=== PATIENT | female | born 1970 | race African-American/Black ===

== ENCOUNTER 2019-06-07 20:45 | Inpatient (IN) ==
[2019-06-07] MEDS ORDERED: NS 1,000 ML IV ONE ×2 (20:49)
[2019-06-07] MEDS ORDERED: EPINEPHRINE IM ONE (20:49)
[2019-06-07] MEDS ORDERED: DUONEB (A & A) INH ONE (20:49)
[2019-06-07 21:04] LABS: BASO# 0.02 X1000 (0.0-0.2); BASO% 0.2 % (0.0-0.8); EOS# 0.07 X1000 (0.0-0.7); EOS% 0.6 % (0.0-10.0); HEMATOCRIT 39.8 % (37.0-47.0); HEMOGLOBIN 11.7 g/dL (12.0-16.0); IMM GRAN# 0.05 X1000 (0.0-0.04); IMM GRAN% 0.4 % (0.0-0.5); LYMPH# 1.25 X1000 (1.2-3.4); LYMPH% 10.2 % (20.5-51.1); MCH 22.7 PG (27-31); MCHC 29.4 g/dL (33-37); MCV 77.1 FL (81-99); MONO% 9.8 % (1.7-9.3); MPV 10.8 FL (7.4-10.4); NEUT# 9.66 X1000 (1.4-6.5); NEUT% 78.8 % (42.2-75.2); PLT 298 X1000 (130-400); RBC 5.16 XMIL (4.2-5.4); RDW 15.9 % (11.5-14.5); WBC 12.25 X1000 (4.8-10.8)
[2019-06-07 21:20] LABS: AGAP 11; ALBUMIN 4.4 g/dL (3.5-5.0); ALKALINE PHOSPHATASE 94 U/L (32-104); BUN 12 mg/dL (8-22); CALCIUM 9.5 mg/dL (8.8-10.2); CHLORIDE 104 mmol/L (98-107); CK PROFILE 160 U/L (24-173); COSMO 290; CREATININE 0.7 mg/dL (0.5-0.9); ESTIMATED GFR > 60; GLUCOSE 159 mg/dL (70-104); GOT 10 U/L (10-30); GPT 10 U/L (10-36); MAGNESIUM 1.7 mg/dL (1.5-2.7); POTASSIUM 3.9 mmol/L (3.5-5.1); SODIUM 144 mmol/L (136-145); TCO2 29 mmol/L (25-35); TOTAL PROTEIN 7.1 g/dL (6.3-8.3)
[2019-06-07 21:20] LABS: BE 3.6 mmoll (-3.0-3.0); BLOOD TYPE ARTERIAL; HCO3-(ACT) 27.5 mmoll (20.0-26.0); METHB 1.5 % (0.0-1.5); O2(CT) 15.8 mL/dL (15.0-23.0); PO2(98.6) 63 mmHg (60-100); SAMPLE BLOOD; SAO2 95.5 % (95.0-100.0); THB 12.5 g/dL (11.5-17.4); pH(98.6) 7.35 (7.35-7.45)
[2019-06-07 21:22] LABS: INR 0.9; PROTIME 12.6 Seconds (11.0-16.0)
[2019-06-07 21:23] LABS: PTT 30.1 Seconds (22.3-41.8)
[2019-06-07 21:23] LABS: ALLEN TEST YES; MODALITY CANNULA; O2HB 89.6 % (95.0-99.0); PCO2(98.6) 55 mmHg (35-45)
[2019-06-07 21:36] LABS: INFLUENZA A NEGATIVE (NEGATIVE); INFLUENZA B NEGATIVE (NEGATIVE)
[2019-06-07 21:39] LABS: URINE SOURCE CATH
[2019-06-07] MEDS ORDERED: ROCEPHIN 2 GM in NS 50 ML IV ONE (21:39)
[2019-06-07] MEDS ORDERED: ZITHROMAX 500 MG/NS 500 MG/250 ML IVPB IV ONE (21:39)
[2019-06-07 21:41] LABS: BILIRUBIN URINE NEGATIVE (NEGATIVE); BLOOD URINE TRACE (NEGATIVE); COLOR YELLOW; GLUCOSE URINE NEGATIVE (NEGATIVE); KETONE URINE NEGATIVE (NEGATIVE); LEUKOCYTES URINE NEGATIVE (NEGATIVE); NITRITE URINE NEGATIVE (NEGATIVE); PH URINE 5.5; PROTEIN URINE 30 mg/dL (NEGATIVE); SP GRAVITY URINE 1.027; TURBIDITY URINE CLEAR (CLEAR); UROBILINOGEN URINE NORMAL (NORMAL)
[2019-06-07 21:42] LABS: UR EPITHELIAL CELLS <10 /HPF (<10); URINE BACTERIA NEGATIVE /HPF; URINE RBC <10 /HPF (<10); URINE WBC <10 /HPF (<10)
[2019-06-07] MEDS: MAGNESIUM SULFATE 2 GM/S.W.I. 2 GM/50 ML IVPB IV ONE ×2 (21:48→22:34)
[2019-06-07] MEDS ORDERED: LASIX IV ONE (22:03)
[2019-06-07] MEDS ORDERED: ZOFRAN IV ONE (22:04)
[2019-06-07] MEDS ORDERED: NITROGLYCERIN TOP ONE (22:04)
[2019-06-07] MEDS ORDERED: MORPHINE IV ONE (22:04)
--- NOTE | 2019-06-07 22:05 | Diag Imaging Result Doc PS360 ---
EXAM: CHEST-1 VIEW INDICATION: resp distress TECHNIQUE: One view COMPARISON: 03/27/2019 FINDINGS: Lung volumes are very low. There is opacification at the left lung base suggesting possible consolidation. Some of this may be due to attenuation of overlying soft tissue. Cardiac silhouette and central vasculature are grossly unremarkable. IMPRESSION: Very low lung volumes and increased opacity at the left lung base suggesting possible developing consolidation. Electronically signed by Pradeep Kathleen 06/07/2019 10:03 PM
--- NOTE | 2019-06-07 22:32 | PROVIDER DOCUMENTATION ---
This chart was entered by Petra Kathleen Scribe, acting as scribe for Dmitry Villegas MD. HPI-Respiratory General - General Stated Complaint: SOB Time Seen by Provider: 06/07/19 20:47 Source: patient, other (triage note) Allergies/Adverse Reactions: Patient Allergies Allergy/AdvReac Type Severity Reaction Status Date / Time Iodinated Contrast Media Allergy Severe HIVES Verified 06/07/19 20:51 Home Medications: Home Medication List Medication Instructions Recorded Confirmed Last Taken Type Metformin [Glucophage] 1,000 mg PO WBREAKFAST #120 tab 05/25/17 05/05/19 7 Rx Bupropion HCl 1 tab PO BID 03/31/19 05/05/19 Unknown History Chlorthalidone 1 tab PO BID 03/31/19 05/05/19 Unknown History Metoprolol [Lopressor] 1 tab PO BID 03/31/19 05/05/19 Unknown History Tizanidine [Zanaflex] 1 tab PO BID 03/31/19 05/05/19 Unknown History Zolpidem [Ambien] 1 tab PO HS 03/31/19 05/05/19 Unknown History Meloxicam [Mobic] 7.5 mg PO DAILY PRN #14 tab 05/05/19 Unknown Rx - History of Present Illness-Resp Nature of Presenting Problem: pt is a 48 yobf presenting to er w/cc severe resp distress ongoing all day. pt only able to say 3-4 words at a time, ill appearing, an dis tachypenic and tachycardic. pt has hx of copd and asthma. pcp is Dr. Smith. hpi limited due to pt condition. Severity in ED: reports: severe Onset/Duration: reports: just prior to arrival Timing: reports: still present Exposure: reports: unknown cause Similar Symptoms Previously?: Yes (pt has been on ventilator before for resp distress ) Review of Systems - Adult - REVIEW OF SYSTEMS - ADULT ROS:: limited per condition Constitutional: reports: no symptoms reported. denies: chills, fever, fatique Eyes: reports: no symptoms reported Ears, Nose, Mouth & Throat: reports: no symptoms reported Cardiovascular: reports: see HPI, irregular heart rate Respiratory: reports: see HPI, shortness of breath, wheezing, other (severe resp distress, tachypnea). denies: excessive sputum production, hemoptysis Gastrointestinal: reports: diarrhea (profuse watery x 2 days) Genitourinary: reports: no symptoms reported Musculoskeletal: reports: no symptoms reported Integumentary: reports: no symptoms reported Neurological: reports: no symptoms reported Psychiatric: reports: no symptoms reported Endocrine: reports: no symptoms reported Hematologic/Lymphatic: reports: no symptoms reported Allergic/Immunologic: reports: no symptoms reported All Other Systems: Reviewed and Negative Past History - Adult - PAST MEDICAL HISTORY-ADULT Review of Records: reports: Nursing Assessment Review, Medications Reviewed, Social history reviewed & non-contributory. Major Childhood Illnesses: reports: denies history Cardiovascular: reports: HTN, hyperlipidemia Respiratory: reports: asthma, COPD Gastrointestinal: reports: denies history Obstetrical/Gynecological: reports: denies history Genitourinary: reports: denies history Musculoskeletal: reports: denies history Neurological: reports: CVA, other (aneursym) Endocrine/Immune: reports: Diabetes Other Conditions: reports: denies history - PRIOR SURGERIES/PROCEDURES Surgical/Procedure History: reports: tonsillectomy, hernia repair, other (ANEURYSM) - IMMUNIZATION STATUS Childhood Immunizations: See Nurse Assessment Flu Vaccine: See Nurse Assessment - FAMILY HISTORY Family History: reviewed, not pertinent - SOCIAL HISTORY Smoking: other (former smoker) Substance Use: none/never Physical Exam-General - PHYSICAL EXAM-ADULT Initial Vital Signs Reviewed: Yes - CONSTITUTIONAL General Appearance: alert, severe distress, obese, slow to respond, obtunded. negative: appears well, no apparent distress, mild distress - EYES Eyes: PERRL/EOMI, pink conjunctivae - HEAD, EARS, NOSE, MOUTH & THROAT HENMT: normocephalic/atraumatic. negative: moist mucous membranes (dry mucous membranes) - NECK Neck: non-tender, full range of motion, supple, normal inspection - RESPIRATORY Respiratory: chest non-tender, respiratory distress, decreased breath sounds (diminshed), accessory muscle use, rhonchi, wheezing (bilat exp and ins), increased rate. negative: lungs clear, normal breath sounds, no respiratory distress, no accessory muscle use, crackles, rales - CARDIOVASCULAR Cardiovascular: normal peripheral pulses, no edema, no gallop, no JVD, no murmur , tachycardia. negative: regular rate, rhythm, friction rub, irregularly irregular - GASTROINTESTINAL (ABDOMEN) Abdominal Exam: non tender, soft, other (large abd scar from hernia repair). negative: rigid, rebound, tenderness - MUSCULOSKELETAL Back Exam: normal inspection Extremity: normal range of motion, non-tender, normal inspection - SKIN Integumentary: normal color, normal turgor, diaphoresis. negative: warm/dry - NEUROLOGIC Neurologic: grossly normal, no motor/sensory deficits - PSYCHIATRIC Psych/Mental Status: oriented x 3. negative: normal mood/affect, normal thought content, normal thought process Progress - PLAN OF CARE/RESULTS Progress/Plan/Lab Results: Vital Signs - 8 hr 06/07/19 20:46 06/07/19 21:00 06/07/19 21:14 Temperature 98.2 F Pulse Rate 120 H 117 H Respiratory Rate 40 H 28 H Blood Pressure 165/119 O2 Sat by Pulse Oximetry 84 L 94 L Laboratory Results - last 24 hr 06/07/19 06/07/19 06/07/19 20:57 20:58 20:58 WBC 12.25 H RBC 5.16 Hgb 11.7 L Hct 39.8 MCV 77.1 L MCH 22.7 L MCHC 29.4 L RDW Std Deviation 15.9 H Plt Count 298 MPV 10.8 H Immature Gran % (Auto) 0.4 Neut % (Auto) 78.8 H Lymph % (Auto) 10.2 L [place] % (Auto) 9.8 H Eos % (Auto) 0.6 Baso % (Auto) 0.2 Immature Gran # (Auto) 0.05 H Neut # (Auto) 9.66 H Lymph # (Auto) 1.25 [place] # (Auto) 1.20 H Eos # (Auto) 0.07 Baso # (Auto) 0.02 PT INR PTT (Actin FS) Specimen Type ARTERIAL Sample Site R RADIAL pH 7.35 pCO2 55 H* pO2 63 HCO3 27.5 H Base Excess 3.6 H Oxyhemoglobin 89.6 L* ABG O2 Sat (Calculated) 15.8 ABG O2 Saturation 95.5 ABG Carboxyhemoglobin 4.80 H ABG Methemoglobin 1.5 Aayush Test YES A-a O2 Difference 68.0 Total Hemoglobin 12.5 Lactate 1.40 Liter Flow 2.0 Blood Gas Modality CANNULA FiO2 % 28.0 Sodium 144 Potassium 3.9 Chloride 104 Carbon Dioxide 29 Anion Gap 11 BUN 12 Creatinine 0.7 Estimated GFR/1.73 m2 > 60 BUN/Creatinine Ratio 17 Glucose 159 H Calculated Osmolality 290 Calcium 9.5 Magnesium 1.7 Total Bilirubin 0.20 AST 10 ALT 10 Alkaline Phosphatase 94 Creatine Kinase 160 Troponin T Yvo-E-Vljibzpoygk Pept Total Protein 7.1 Albumin 4.4 Globulin 3.0 Albumin/Globulin Ratio 2.0 Plasma Lactate Urine Source Urine Color Urine Turbidity Urine pH Ur Specific [place] Urine Protein Ur Glucose (Stick) Ur Ketones (Stick) Urine Blood Urine Nitrite Urine Bilirubin Urobilinogen Dipstick Urine Leukocytes Urine WBC (Auto) Urine RBC (Auto) U Epithel Cells (Auto) Urine Bacteria (Auto) Influenza A (Rapid) Influenza B (Rapid) Group A Strep Rapid 06/07/19 06/07/19 06/07/19 20:58 20:58 20:58 WBC RBC Hgb Hct MCV MCH MCHC RDW Std Deviation Plt Count MPV Immature Gran % (Auto) Neut % (Auto) Lymph % (Auto) [place] % (Auto) Eos % (Auto) Baso % (Auto) Immature Gran # (Auto) Neut # (Auto) Lymph # (Auto) [place] # (Auto) Eos # (Auto) Baso # (Auto) PT 12.6 INR 0.90 PTT (Actin FS) 30.1 Specimen Type Sample Site pH pCO2 pO2 HCO3 Base Excess Oxyhemoglobin ABG O2 Sat (Calculated) ABG O2 Saturation ABG Carboxyhemoglobin ABG Methemoglobin Aayush Test A-a O2 Difference Total Hemoglobin Lactate Liter Flow Blood Gas Modality FiO2 % Sodium Potassium Chloride Carbon Dioxide Anion Gap BUN Creatinine Estimated GFR/1.73 m2 BUN/Creatinine Ratio Glucose Calculated Osmolality Calcium Magnesium Total Bilirubin AST ALT Alkaline Phosphatase Creatine Kinase Troponin T < 0.010 Jje-M-Yyiapmaaxsa Pept 1123 H Total Protein Albumin Globulin Albumin/Globulin Ratio Plasma Lactate Urine Source Urine Color Urine Turbidity Urine pH Ur Specific [place] Urine Protein Ur Glucose (Stick) Ur Ketones (Stick) Urine Blood Urine Nitrite Urine Bilirubin Urobilinogen Dipstick Urine Leukocytes Urine WBC (Auto) Urine RBC (Auto) U Epithel Cells (Auto) Urine Bacteria (Auto) Influenza A (Rapid) Influenza B (Rapid) Group A Strep Rapid 06/07/19 06/07/19 06/07/19 21:08 21:08 21:30 WBC RBC Hgb Hct MCV MCH MCHC RDW Std Deviation Plt Count MPV Immature Gran % (Auto) Neut % (Auto) Lymph % (Auto) [place] % (Auto) Eos % (Auto) Baso % (Auto) Immature Gran # (Auto) Neut # (Auto) Lymph # (Auto) [place] # (Auto) Eos # (Auto) Baso # (Auto) PT INR PTT (Actin FS) Specimen Type Sample Site pH pCO2 pO2 HCO3 Base Excess Oxyhemoglobin ABG O2 Sat (Calculated) ABG O2 Saturation ABG Carboxyhemoglobin ABG Methemoglobin Aayush Test A-a O2 Difference Total Hemoglobin Lactate Liter Flow Blood Gas Modality FiO2 % Sodium Potassium Chloride Carbon Dioxide Anion Gap BUN Creatinine Estimated GFR/1.73 m2 BUN/Creatinine Ratio Glucose Calculated Osmolality Calcium Magnesium Total Bilirubin AST ALT Alkaline Phosphatase Creatine Kinase Troponin T Mrl-I-Mmymuuwvhiq Pept Total Protein Albumin Globulin Albumin/Globulin Ratio Plasma Lactate Urine Source CATH Urine Color YELLOW Urine Turbidity CLEAR Urine pH 5.5 Ur Specific [place] 1.027 Urine Protein 30 A Ur Glucose (Stick) NEGATIVE Ur Ketones (Stick) NEGATIVE Urine Blood TRACE A Urine Nitrite NEGATIVE Urine Bilirubin NEGATIVE Urobilinogen Dipstick NORMAL Urine Leukocytes NEGATIVE Urine WBC (Auto) <10 Urine RBC (Auto) <10 U Epithel Cells (Auto) <10 Urine Bacteria (Auto) NEGATIVE Influenza A (Rapid) NEGATIVE Influenza B (Rapid) NEGATIVE Group A Strep Rapid NEGATIVE 06/07/19 21:35 WBC RBC Hgb Hct MCV MCH MCHC RDW Std Deviation Plt Count MPV Immature Gran % (Auto) Neut % (Auto) Lymph % (Auto) [place] % (Auto) Eos % (Auto) Baso % (Auto) Immature Gran # (Auto) Neut # (Auto) Lymph # (Auto) [place] # (Auto) Eos # (Auto) Baso # (Auto) PT INR PTT (Actin FS) Specimen Type Sample Site pH pCO2 pO2 HCO3 Base Excess Oxyhemoglobin ABG O2 Sat (Calculated) ABG O2 Saturation ABG Carboxyhemoglobin ABG Methemoglobin Aayush Test A-a O2 Difference Total Hemoglobin Lactate Liter Flow Blood Gas Modality FiO2 % Sodium Potassium Chloride Carbon Dioxide Anion Gap BUN Creatinine Estimated GFR/1.73 m2 BUN/Creatinine Ratio Glucose Calculated Osmolality Calcium Magnesium Total Bilirubin AST ALT Alkaline Phosphatase Creatine Kinase Troponin T Nel-Z-Xgjpfuqxbxb Pept Total Protein Albumin Globulin Albumin/Globulin Ratio Plasma Lactate 1.2 Urine Source Urine Color Urine Turbidity Urine pH Ur Specific [place] Urine Protein Ur Glucose (Stick) Ur Ketones (Stick) Urine Blood Urine Nitrite Urine Bilirubin Urobilinogen Dipstick Urine Leukocytes Urine WBC (Auto) Urine RBC (Auto) U Epithel Cells (Auto) Urine Bacteria (Auto) Influenza A (Rapid) Influenza B (Rapid) Group A Strep Rapid Orders Category Date Time Status Cardiac Monitoring DIRECTED Care 06/07/19 20:48 Active IV Insertion ORDERED Care 06/07/19 20:48 Active CHEST-1 VIEW [RAD] Stat Exams 06/07/19 20:48 Completed ABG [RESP] Routine Lab 06/07/19 20:57 Completed BLOOD CULTURE [BLDCUL] Stat Lab 06/07/19 20:57 Ordered C DIFF TOXIN [STOOL] Stat Lab 06/07/19 21:30 Received CBC WITH DIFF [HEME] Stat Lab 06/07/19 20:58 Completed CK PROFILE [SP CHEM] Stat Lab 06/07/19 20:58 Completed COMPREHENSIVE METABOLIC PANEL [CHEM] Stat Lab 06/07/19 20:[address] Stat Lab 06/07/19 21:[address] Stat Lab 06/07/19 21:08 Completed LACTATE, PLASMA [CHEM] Lab 06/08/19 00:00 Uncollected LACTATE, PLASMA [CHEM] Lab 06/08/19 03:00 Uncollected LACTATE, PLASMA [CHEM] Q3H Lab 06/07/19 21:35 Completed MAGNESIUM [CHEM] Stat Lab 06/07/19 20:58 Completed PRO B-NATRIURETIC PEPTIDE Stat Lab 06/07/19 20:58 Completed PROTIME WITH INR [COAG] Stat Lab 06/07/19 20:58 Completed PTT [COAG] Stat Lab 06/07/19 20:58 Completed STOOL CULTURE [RM] Routine Lab 06/07/19 21:39 Ordered TROPONIN T Stat Lab 06/07/19 20:58 Completed URINALYSIS W/POSS RFLX CULT [URINALYSIS] Stat Lab 06/07/19 21:30 Completed 0.9% Sodium Chloride Inj [Ns] 1,000 ml Med 06/07/19 20:49 Discontinued IV 999 mls/hr 0.9% Sodium Chloride Inj [Ns] 1,000 ml Med 06/07/19 20:49 Discontinued IV 999 mls/hr Albuterol 2.5MG/Ipratrop 0.5MG [Duoneb (A & A)] Med 06/07/19 20:49 Discontinued 9 ml INH NOW ONE Azithromycin 500 mg/Ns [Zithromax 500 mg/Ns] Med 06/07/19 21:39 Active 500 mg in 250 ml IV NOW CefTRIAXONE [Rocephin] 2 gm Med 06/07/19 21:39 Discontinued 0.9% Sodium Chloride Inj [Ns] 50 ml IV NOW Epinephrine Med 06/07/19 20:49 Discontinued 0.3 mg IM NOW ONE Furosemide [Lasix] Med 06/07/19 22:03 Discontinued 80 mg IV NOW ONE Magnesium Sulfate 2 gm/S.w.i. Med 06/07/19 20:49 Discontinued 2 gm in 50 ml IV NOW Morphine Med 06/07/19 22:04 Discontinued 2 mg IV NOW ONE Nitroglycerin Med 06/07/19 22:04 Discontinued 0.5 inch TOP NOW ONE Ondansetron [Zofran] Med 06/07/19 22:04 Discontinued 4 mg IV NOW ONE Aerosol Treatments Routine Oth 06/07/19 20:50 Completed Aerosol Treatments Stat Oth 06/07/19 20:50 Completed Oxygen Device Stat Oth 06/07/19 20:48 Completed Result Diagrams: 06/07/19 20:58 06/07/19 20:58 - REASSESSMENT Reassessment #1 Time Reassessed: 22:05 Status: improving (Given 3 duoneb treatments, Oxygen to raise O2 sats greater than 92%. Patient has 3 SIRS criteria, but negative lactate, so was given Rocephin/Zithromax for possible resp cause of sepsis without end organ damage. There is also evidence of CHF (HTN, CM on x-ray, cephalization of vessels, elevated pro BNP), so was given NTP, Lasix, and enalaprilat IV as BP was very high. Will need admission.) - XRAY 1 XRAY Study: Chest Impression: Abnormal, See EMR Report ( EXAM: CHEST-1 VIEW INDICATION: resp distress TECHNIQUE: One view COMPARISON: 03/27/2019 FINDINGS: Lung volumes are very low. There is opacification at the left lung base suggesting possible consolidation. Some of this may be due to attenuation of overlying soft tissue. Cardiac silhouette and central vasculature are grossly unremarkable. IMPRESSION: Very low lung volumes and increased opacity at the left lung base suggesting possible developing consolidation. Electronically signed by Pradeep Kathleen 06/07/2019 10:03 PM) - CONSULTS/PCP/HOSPITALIST Notification #1 *Consult/PCP/Hospitalist*: Hospitalist paged at [phone] Time Discussed: 22:32 (Dr. Garcia from [facility]) Consult Disposition: Admit (to [facility] at ) Departure - Departure Date of Disposition Decision: 06/07/19 Time of Disposition Decision: 22:12 DIAGNOSIS: Respiratory distress, acute, New onset of congestive heart failure, Hypertensive emergency Left lower lobe pneumonia Qualifiers: Pneumonia type: due to unspecified organism Qualified Code(s): J18.1 - Lobar pneumonia, unspecified organism Sepsis without acute organ dysfunction Qualifiers: Sepsis type: sepsis due to unspecified organism Qualified Code(s): A41.9 - Sepsis, unspecified organism Disposition: ADMITTED INPATIENT 09 Certified Medical Emergency: Emergent Condition: Fair Referrals and Follow-Ups: None,PCP [Primary Care Provider] - - Critical Care Note This patient required my direct & personal management of CC.: Yes Total Time (mins): 50 (Resp and CVS systems at peril, sepsis, chf, pne) Critical Care Statement: This patient required my direct personal management to treat or rule out processes, the absence of which, could potentiallly result in sudden, clinically significant life or limb threatening deterioration. Attestation - Physician/ OBI Attestation Patient care was provided by Advanced Practice Provider:: No The physician spent face to face time with patient:: Yes Advanced Practice Provider documentation review:: Supervising physician onsite and consulted in the evaluation and care of this patient. The physician did have a face to face encounter with the patient. This chart was documented by the indicated scribe, (Petra Kathleen Scribe) and accurately reflects the services I performed and decisions made by me, Dmitry Villegas MD, as attested by the provider's signature.
[2019-06-07] MEDS ORDERED: TYLENOL PO PRN (23:19)
[2019-06-07] MEDS: DUONEB (A & A) INH SCH (23:40)
[2019-06-08] MEDS: DUONEB (A & A) INH SCH ×6 (03:23→22:46)
[2019-06-08] MEDS: MORPHINE IV PRN ×5 (04:21→20:09)
[2019-06-08] MEDS: HEPARIN SUBQ SCH ×3 (04:37→20:10)
[2019-06-08] MEDS ORDERED: LASIX IV STA (09:01)
[2019-06-08] MEDS ORDERED: LASIX 120 MG in NS 25 ML IV STA (09:04)
--- NOTE | 2019-06-08 10:51 | PROGRESS NOTE ---
DATE: 06/08/2019 SUBJECTIVE: Ms. Simms is still struggling to breathe with significant bronchospasm and she is on BiPAP. Came in with shortness of breath, obesity. Appears to have obstructive sleep apnea as well. OBJECTIVE: General: On examination today, she is awake and alert. Expiratory wheezing in all lung leong. Vital Signs: Temperature 97.9 degrees, pulse 105, respirations 20, blood pressure 148/108. Eyes: Pupils are equal and round. Lungs: Clear in all lung leong. Cardiovascular exam: Regular rhythm and rate without murmur or S3. Abdomen: Soft. Skin: Warm and dry. ASSESSMENT AND PLAN: Expiratory wheezing; prolonged expiratory phase. She is getting DuoNebs and have her on ceftriaxone 1 g q. 24 hours, azithromycin 500 mg IV q. 24 hours. Gave her 1 dose of Lasix when she came in. I will put her on some guaifenesin and a steroid inhaler. I think she would benefit from Solu-Medrol. On her x-ray, very low lung volumes, increased opacity in the left lung base suggesting possible consolidation. cc: Aayush Martinez MD
[2019-06-08] MEDS: SYMBICORT 160/4.5 MICROGM INHALER INH SCH ×2 (11:47→19:26)
[2019-06-08] MEDS: MUCOMYST 20% INH SCH ×2 (11:47→19:26)
[2019-06-08] MEDS: SOLU-MEDROL IV SCH ×2 (12:00→20:10)
[2019-06-08] MEDS: LASIX IV SCH (16:51)
[2019-06-08] MEDS: AMBIEN PO SCH (20:10)
[2019-06-08] MEDS: MUCINEX PO SCH (20:10)
[2019-06-08] MEDS ORDERED: AMBIEN PO SCH (21:00)
[2019-06-08] MEDS: LOPRESSOR PO SCH (21:38)
[2019-06-08] MEDS: ZANAFLEX PO SCH (21:39)
[2019-06-08] MEDS: ROCEPHIN 1 GM in NS 50 ML IV SCH (21:39)
--- NOTE | 2019-06-08 22:18 | HISTORY AND PHYSICAL ---
CHIEF COMPLAINT: Shortness of breath. HISTORY OF PRESENT ILLNESS: This is a 48-year-old obese female who came into [facility] emergency room with severe respiratory distress that was ongoing all day. She was transferred to [facility] to PCU for further evaluation and had to be placed on BiPAP. She could only say 3-4 words, was ill appearing. She was tachycardic and tachypneic. Has a history of COPD, asthma and CVA as well as diabetes mellitus type 2. Her chest x-ray that was completed in the emergency room showed a left lobe pneumonia. Started on antibiotics and she will be admitted inpatient for further evaluation and treatment. PAST MEDICAL HISTORY: See HPI. PREVIOUS SURGICAL HISTORY: Aneurysm repair, hernia repair, tonsillectomy. SOCIAL HISTORY: Former smoker. No tobacco. No alcohol. No illicit drugs. FAMILY HISTORY: Positive for diabetes mellitus. ALLERGIES: Iodine contrast. HOME MEDICATIONS: Chlorthalidone 25 mg p.o. b.i.d., Lopressor 25 mg p.o. b.i.d., Zanaflex 4 mg p.o. b.i.d. and Ambien 10 mg p.o. q.h.s. REVIEW OF SYSTEMS: Fourteen-point review of systems conducted with the patient. Pertinent positives listed above in the HPI. All other systems reviewed and found to be negative. PHYSICAL EXAMINATION: VITAL SIGNS: Temperature 98.1, pulse 114, respirations 25, blood pressure 125/105, oxygen saturation 94% on 4 L nasal cannula. This was before BiPAP. Saturating 97% on BiPAP. GENERAL: A 48-year-old obese female lying in the CICU bed. She is only mouthing words, very tachypneic and short of breath, in moderate respiratory distress. HEENT: Head is atraumatic, normocephalic. Pupils equal, round, reactive to light. Extraocular eye movement is intact. Sclera is anicteric. Conjunctiva is pink. Oral mucosa is dry. NECK: Supple. No JVD. No thyromegaly. Trachea is midline. No cervical lymphadenopathy. CARDIAC: S1, S2 appreciated. No murmurs, gallops, rubs. LUNGS: Expiratory wheezing. Coarse crepitations noted on the left. Prolonged expiratory phase. She is tachypneic with decreased airway entry bilaterally. Symmetrical rise and fall with respirations. ABDOMEN: Protuberant, soft, nondistended, nontender. Bowel sounds present all 4 quadrants, normoactive. No pulsatile mass. No organomegaly. EXTREMITIES: No clubbing, cyanosis. One-plus nonpitting edema bilateral lower extremities. Two- plus pedal pulses bilaterally. GENITOURINARY: No bladder distention. Patient voids. Otherwise deferred. NEUROLOGICAL: Alert and oriented times 3. No focal motor deficits. Otherwise nonfocal examination. DIAGNOSTIC DATA: Chest x-ray showed very low lung volumes, increased opacity of the left lung, possible developing consolidation. LABORATORY DATA: WBC 12.25. Hemoglobin 11.7. Hematocrit 39.8. Platelet count 298. ABG: pH 7.35, pCO2 of 55, PO2 of 63, bicarbonate 27.5. Chemistry panel within normal limits other than a glucose of 159. ProBNP mildly elevated at 1123. Urine unremarkable. Influenza and rapid strep were negative. ASSESSMENT: 1. Left lower lobe pneumonia. 2. Hypoxic and hypercapnic respiratory failure. 3. Chronic obstructive pulmonary disease with exacerbation. 4. Hypertension. 5. Diabetes mellitus type 2. PLAN: 1. Place the patient on PCU. We will monitor closely. 2. Start on azithromycin and Rocephin IV. 3. We will not start steroids at this time as she is diabetic. However, she may benefit from steroids if she is not starting to get better tomorrow morning. 4. She was also given Lasix in the emergency room. We will not continue that at this time. We will defer to primary team tomorrow after the patient has diuresed somewhat. 5. Continue home medications for her hypertension. 6. Continue BiPAP. It is probable that the patient has obstructive sleep apnea and possible pickwickian syndrome related to her morbid obesity. 7. Continue to evaluate patient closely. 8. Further recommendations per patient clinical course. Dictated by RUSSEL Cuello for Fernando Garcia MD I have performed a face to face diagnostic evaluation. Labs/Xrays- reviewed. Exam- Chest - rhonchi, CV- regular. A/P- Pneumonia- Admit, check blood culture, IV Abx. Dr. Jose Palacio#: [id number] cc: RUSSEL Cuello MD [facility]
[2019-06-08] MEDS: ZITHROMAX 500 MG/NS 500 MG/250 ML IVPB IV SCH (22:35)
--- NOTE | 2019-06-09 02:13 | PULMONOLOGY CONSULTATION ---
DATE: 06/08/2019 REQUESTING PHYSICIAN: Dr. Aayush Martinez. REASON FOR CONSULTATION: Evaluate and treat. HISTORY OF PRESENT ILLNESS: Ms Simms is a 48-year-old white female with COPD, asthma and morbid obesity with a BMI greater than 60, who presented to the emergency room with 2 to 3 day history of increasing shortness of breath. On the day she presented to the emergency room, she was unable to complete a full sentence. Her sister is with her and indicates her last cigarette was 2 days ago. She has received steroids, nebulizer treatments, and a diuretic dose with some improvement in her shortness of breath. PAST MEDICAL HISTORY: 1. Chronic obstructive pulmonary disease. 2. Morbid obesity. She reports she is currently being evaluated for a gastric bypass. 3. Hypertension. 4. Dyslipidemia. 5. History of stroke. 6. Diabetes mellitus, on metformin. 7. Obstructive sleep apnea diagnosed with a sleep study 01/13/2019. 8. Osteoarthritis. She is followed by Dr. Michelle at [facility]. REVIEW OF SYSTEMS: As noted in the HPI. She has had increased cough, increased shortness of breath. She denies significant sputum production. She denies fevers. Review of systems otherwise negative. PHYSICAL EXAMINATION: General: Reveals a morbidly obese white female with an oxygen saturation of 98% on 4 L per nasal cannula. HEENT: Pupils are equal and reactive. Oropharynx is clear. Neck: Supple. Chest: Reveals diffuse wheezing throughout all lung leong. Cardiac: S1, S2. Abdomen: Obese and soft. Extremities: Reveal 1+ peripheral edema. LABORATORIES: Arterial blood gas reveals pH 7.35, pCO2 of 55, pO2 of 63 on nasal cannula. White blood count 12.25, hemoglobin 11.7, platelet count 298,000. Chest x-ray reveals vascular congestion with possible consolidation at the left lung base. IMPRESSION: A 48-year-old with: 1. Chronic obstructive pulmonary disease exacerbation. 2. Community-acquired pneumonia. 3. Morbid obesity. 4. Component of acute cor pulmonale. 5. Tobacco use/nicotine addiction. RECOMMENDATIONS: 1. We will give 2 doses of diuretics today in an attempt to diurese and improve pulmonary status. 2. Continue steroids, antibiotics, and bronchodilators. 3. Continue oxygen for hypoxemic respiratory failure. 4. Recommend BiPAP at bedtime and p.r.n. 5. Followup chest x-ray tomorrow morning. cc: Jose Garrido MD
[2019-06-09] MEDS: MORPHINE IV PRN ×4 (03:07→20:38)
[2019-06-09] MEDS: LASIX IV SCH (03:07)
[2019-06-09] MEDS: SOLU-MEDROL IV SCH ×3 (03:07→20:28)
[2019-06-09] MEDS: HEPARIN SUBQ SCH ×4 (03:08→20:34)
[2019-06-09] MEDS: DUONEB (A & A) INH SCH ×6 (03:35→22:29)
[2019-06-09] MEDS: HUMULIN R SUBQ SCH ×4 (06:22→22:03)
[2019-06-09 06:25] LABS: BASO# 0.01 X1000 (0.0-0.2); BASO% 0.1 % (0.0-0.8); EOS# 0.01 X1000 (0.0-0.7); EOS% 0.1 % (0.0-10.0); HEMATOCRIT 38.7 % (37.0-47.0); HEMOGLOBIN 11.3 g/dL (12.0-16.0); IMM GRAN# 0.05 X1000 (0.0-0.04); IMM GRAN% 0.3 % (0.0-0.5); LYMPH# 1.07 X1000 (1.2-3.4); LYMPH% 6.5 % (20.5-51.1); MCH 22.9 PG (27-31); MCHC 29.2 g/dL (33-37); MCV 78.3 FL (81-99); MONO# 0.29 X1000 (0.11-0.59); MONO% 1.8 % (1.7-9.3); MPV 11.2 FL (7.4-10.4); NEUT# 15.07 X1000 (1.4-6.5); NEUT% 91.2 % (42.2-75.2); PLT 308 X1000 (130-400); RBC 4.94 XMIL (4.2-5.4); RDW 15.7 % (11.5-14.5)
[2019-06-09 06:40] LABS: AGAP 10; ALB/GLOB RATIO 1.2; ALBUMIN 3.9 g/dL (3.5-5.0); ALKALINE PHOSPHATASE 79 U/L (32-104); BUN 15 mg/dL (8-22); CALCIUM 8.9 mg/dL (8.8-10.2); CHLORIDE 98 mmol/L (98-107); COSMO 287; CREATININE 0.9 mg/dL (0.5-0.9); ESTIMATED GFR > 60; GLUCOSE 179 mg/dL (70-104); GOT 8 U/L (10-30); GPT 8 U/L (10-36); MAGNESIUM 1.9 mg/dL (1.5-2.7); PHOSPHORUS 2.5 mg/dL (2.7-4.5); POTASSIUM 4.3 mmol/L (3.5-5.1); SODIUM 141 mmol/L (136-145); TCO2 33 mmol/L (25-35); TOTAL BILIRUBIN 0.23 mg/dL (0.20-1.00); TOTAL PROTEIN 7.2 g/dL (6.3-8.3)
--- NOTE | 2019-06-09 08:01 | Diag Imaging Result Doc PS360 ---
EXAM: CHEST-PORTABLE INDICATION: abnormal exam TECHNIQUE: One view COMPARISON: 06/07/2019 FINDINGS: Inspiration is slightly better than the previous study. The opacity at the left lung base has diminished. Most of this is probably overlying soft tissue attenuation. No new consolidation is identified. Cardiac silhouette is stable. IMPRESSION: Better inspiration and decrease in opacity at the left lung base as described. Electronically signed by Pradeep Kathleen 06/09/2019 7:58 AM
[2019-06-09 08:13] LABS: BANDS 4 % (0-1); LYMPHS 6 % (21-51); SEGS 90 % (42-75)
[2019-06-09] MEDS: SYMBICORT 160/4.5 MICROGM INHALER INH SCH ×2 (08:32→19:33)
[2019-06-09] MEDS: LOPRESSOR PO SCH ×2 (09:02→20:34)
[2019-06-09] MEDS: ZANAFLEX PO SCH ×2 (09:02→20:34)
[2019-06-09] MEDS: MUCINEX PO SCH ×2 (09:02→20:28)
--- NOTE | 2019-06-09 13:55 | PROGRESS NOTE ---
DATE: 06/09/2019 SUBKECTIVE: Ms. Simms is breathing better, less bronchospasm. She is complaining of her general arthritic pain and muscle pain and would like more. She says tramadol does not work and she needs some [place]. She is more comfortable. OBJECTIVE: Temp 98.3 degrees, pulse 74, respirations 18, blood pressure 143/102. Pupils are equal. CVP less than 6 cm. Lungs are clear in all lung leong. Cardiovascular regular rate without murmur or S3. Abdomen is soft. Skin is warm and dry. IMAGING: Chest x-ray shows better inspiration, decreased opacity in the left lung base. ASSESSMENT AND PLAN: 1. Chronic obstructive pulmonary disease exacerbation, community-acquired pneumonia left lower lung. Continue present antibiotics and bronchodilators. 2. Morbid obesity with obstructive apnea. 3. Acute cor pulmonale. 4. Tobacco and nicotine addiction. 5. General joint in arthritic pain so going to continue her BiPAP at bedtime. 6. Continue steroids antibiotics and bronchodilators, supplementary oxygen. 7. I will let her have some [place] for her pain control. cc: Aayush Martinez MD
[2019-06-09] MEDS: NORCO-10 PO PRN (15:42)
[2019-06-09] MEDS ORDERED: LASIX IV ONE (16:07)
[2019-06-09] MEDS: AMBIEN PO SCH (20:27)
[2019-06-09] MEDS: ROCEPHIN 1 GM in NS 50 ML IV SCH (22:03)
[2019-06-09] MEDS: ZITHROMAX 500 MG/NS 500 MG/250 ML IVPB IV SCH (22:04)
[2019-06-10] MEDS: MORPHINE IV PRN ×4 (01:06→21:34)
--- NOTE | 2019-06-10 02:01 | PULMONOLOGY PROGRESS NOTE ---
DATE: 06/09/2019 SUBJECTIVE: The patient is awake, alert, and conversant. She reports her breathing has improved. She continues to have arthritic pain and asking for pain medications. OBJECTIVE: Vital Signs: The patient has been afebrile for the last 24 hours. Blood pressure 143/102, respiratory rate 20, oxygen saturation 98% on 4 L per nasal cannula. HEENT: Pupils are equal and reactive. Oropharynx is clear. Neck: Supple. Chest: Reveals scattered wheezing throughout all lung leong. Cardiac: S1-S2. Abdomen: Obese and soft. Extremities: Reveal 1+ peripheral edema. IMPRESSION: A 48-year-old with: 1. Chronic obstructive pulmonary disease exacerbation. 2. Community-acquired pneumonia. 3. Hypoxemic respiratory failure. 4. Morbid obesity. 5. Component of acute cor pulmonale. 6. Tobacco use/nicotine addiction. DISCUSSION: A 48-year-old with problems outlined above. She has had some clinical improvement over the last 24 hours. PLAN: 1. Continue steroids, antibiotics, and bronchodilator. 2. One additional dose this afternoon of Lasix which hemodynamically she should tolerate. 3. Cycle BiPAP at bedtime and p.r.n. cc: Jose Garrido MD
[2019-06-10] MEDS: SOLU-MEDROL IV SCH ×3 (03:26→21:06)
[2019-06-10] MEDS: NORCO-10 PO PRN ×2 (03:26→12:38)
[2019-06-10] MEDS: HEPARIN SUBQ SCH ×4 (03:27→21:07)
[2019-06-10] MEDS: DUONEB (A & A) INH SCH ×6 (03:40→22:53)
[2019-06-10] MEDS: HUMULIN R SUBQ SCH ×4 (06:15→21:17)
[2019-06-10] MEDS: SYMBICORT 160/4.5 MICROGM INHALER INH SCH ×2 (07:23→19:18)
[2019-06-10] MEDS: ZANAFLEX PO SCH ×2 (08:44→21:07)
[2019-06-10] MEDS: MUCINEX PO SCH ×2 (08:44→21:07)
[2019-06-10] MEDS: LOPRESSOR PO SCH ×2 (08:44→21:07)
[2019-06-10] MEDS: CELEXA PO SCH (09:41)
--- NOTE | 2019-06-10 09:53 | PROGRESS NOTE ---
DATE: 06/10/2019 SUBJECTIVE: Ms. Simms is breathing better. She has less wheezing and bronchospasm. She does have some depression. She reported that she was started on medicine recently, but she does not know the name of it. I am going to put her on Celexa 40 mg a day. We will see if we can wean her off the oxygen. She was not on any home oxygen before she came into the hospital. OBJECTIVE: Vital Signs: Temperature 98.3 degrees, pulse 80, respirations 16, blood pressure 143/86. HEENT: Pupils are equal and round. Lungs: Clear in all lung leong. Cardiovascular: Regular rate without murmur or S3. Urine output is 4600 mL. ASSESSMENT AND PLAN: 1. Chronic obstructive pulmonary disease exacerbation. 2. Community-acquired pneumonia. 3. Hypoxemic respiratory failure. 4. Morbid obesity. 5. Component of acute cor pulmonale. 6. Tobacco use on a nicotine patch. Have counseled on the importance of stopping smoking. 7. Depression. 8. Osteoarthritis. See if we can wean her off her oxygen. Note that she is on guaifenesin ER 1200 mg twice a day, budesonide formoterol 2 puffs twice a day, Celexa 40 mg a day, hydrocodone 10 mg q.4 hours, methylprednisone 80 mg IV q.8, we will cut that down to 240 q.8, ceftriaxone 1 g IV q.24 hours, Zanaflex 4 mg b.i.d. She is on azithromycin 500 mg IV q.24 hours. We will continue that, and Ambien 10 mg at bedtime. cc: Aayush Martinez MD
[2019-06-10] MEDS: ROCEPHIN 1 GM in NS 50 ML IV SCH (21:07)
[2019-06-10] MEDS: AMBIEN PO SCH (21:07)
[2019-06-10] MEDS: ZITHROMAX 500 MG/NS 500 MG/250 ML IVPB IV SCH (23:21)
[2019-06-10] MEDS: ZOFRAN IV PRN (23:31)
[2019-06-11] MEDS: DUONEB (A & A) INH SCH ×6 (03:25→22:45)
[2019-06-11] MEDS: NORCO-10 PO PRN ×2 (03:37→20:43)
[2019-06-11] MEDS: SOLU-MEDROL IV SCH ×3 (03:38→20:43)
[2019-06-11] MEDS: HEPARIN SUBQ SCH ×3 (03:38→20:44)
[2019-06-11] MEDS: HUMULIN R SUBQ SCH ×4 (06:11→21:13)
--- NOTE | 2019-06-11 08:03 | Diag Imaging Result Doc PS360 ---
CHEST-2 VIEWS - 06/11/2019 INDICATION: abnormal exam COMPARISON: 06/09/2019 FINDINGS: There are some stable long-standing hazy infiltrate or scarring in the lateral left lung base. No new infiltrates. Stable mild cardiomegaly. No pneumothorax or pleural effusion. Pulmonary vascularity is top normal. IMPRESSION: No change from prior exams. Electronically signed by Tanvir Her 06/11/2019 8:01 AM
[2019-06-11] MEDS: MORPHINE IV PRN ×5 (08:25→23:39)
[2019-06-11] MEDS: LOPRESSOR PO SCH ×2 (08:26→20:43)
[2019-06-11] MEDS: ZANAFLEX PO SCH ×2 (08:26→20:44)
[2019-06-11] MEDS: MUCINEX PO SCH ×2 (08:26→20:43)
[2019-06-11] MEDS: CELEXA PO SCH (08:26)
[2019-06-11] MEDS: SYMBICORT 160/4.5 MICROGM INHALER INH SCH ×2 (09:06→19:34)
--- NOTE | 2019-06-11 09:21 | PULMONOLOGY PROGRESS NOTE ---
DATE: 06/10/2019 SUBJECTIVE: The patient reports her breathing has improved. She would like to have her catheter removed from her bladder. OBJECTIVE: Vital Signs: The patient has been afebrile for the last 24 hours. Blood pressure 135/69, heart rate 71, respiratory rate 18, oxygen saturation 100% on 4 L per nasal cannula. HEENT: Pupils are equal and reactive. Oropharynx appears clear. Neck: Is supple. Chest: Reveals scattered wheezing bilaterally. Cardiac exam: S1, S2. Abdomen: Is obese and soft. Extremities: Reveal trace to 1+ edema. LABORATORIES: Reveal no new data. IMPRESSION: 48-year-old with 1. Asthma/COPD exacerbation. 2. Community-acquired pneumonia. 3. Hypoxemic respiratory failure. 4. Ongoing tobacco use with nicotine addiction. 5. Morbid obesity. 6. Component of acute cor pulmonale. DISCUSSION: 48-year-old with problems outlined above. Clinically, she continues to improve. PLAN: 1. Agree with steroid adjustment as outlined by Dr. Martinez. 2. Continue bronchodilators and antibiotics. 3. Discontinue Rivas catheter at patient's request. 4. Cycle BiPAP at bedtime and p.r.n. 5. Anticipate discharge with decrease in bronchospasm hopefully over the next 24 to 48 hours. 6. Two-view chest x-ray tomorrow. cc: Jose Garrido MD
--- NOTE | 2019-06-11 13:26 | PROGRESS NOTE ---
DATE: 06/11/2019 SUBJECTIVE: Today this patient is complaining of shortness of breath and actually I can hear her wheezing without the stethoscope, as per the patient she is not able to do the BiPAP machine or the CPAP machine at home because she gets shocked, for now we will continue with the same management. I will continue with steroids, breathing treatment, and antibiotics. Pulmonary Department is following this patient closely. OBJECTIVE: Vital Signs: Temperature 98.5 degrees, pulse 80, respiratory rate 20, blood pressure 151/100, oxygen saturation 99 on room air. HEENT: Head normocephalic, no trauma. PERRLA. Neck: Supple. No JVD. No masses. Central trachea. Chest: Decreased breath sounds globally with prolonged expiratory phase and expiratory wheezing bilaterally, some crepitus at the bases. Abdomen: Soft, obese, protuberant, nontender, nondistended, no hepatosplenomegaly. Extremities: No edema, no clubbing, no cyanosis. Neurological: The patient is alert. She is oriented x3. No focal deficits. LABORATORY: Glucose 181. ASSESSMENT AND PLAN: 1. Asthma overlapped with COPD exacerbation, this patient is still smoking. We had a large conversation about smoking and discontinuation of that. She seems to understand. I will continue with steroids, breathing treatment. Pulmonary Department on board. 2. Community-acquired pneumonia. Continue with ceftriaxone and azithromycin. 3. Hypoxemic respiratory failure. She seems to be better. She is not requiring oxygen at this moment. 4. Morbid obesity with a body mass index above 60, aware. Diet and exercise have been discussed. 5. Possible component of acute cor pulmonale, she seems to be more stable. She is still complaining of shortness of breath. 6. Tobacco use and abuse. This patient has been advised against tobacco use. I will continue with daily cessation education. 7. History of depression, aware. 8. Osteoarthritis, aware. cc: Seven Zhang MD
[2019-06-11] MEDS: AMBIEN PO SCH (20:43)
[2019-06-11] MEDS: ROCEPHIN 1 GM in NS 50 ML IV SCH (22:50)
[2019-06-11] MEDS: ZITHROMAX 500 MG/NS 500 MG/250 ML IVPB IV SCH (23:30)
[2019-06-12] MEDS: ZOFRAN IV PRN ×2 (01:48→07:54)
[2019-06-12] MEDS: NORCO-10 PO PRN ×3 (01:48→20:21)
[2019-06-12] MEDS: DUONEB (A & A) INH SCH ×6 (03:45→22:50)
[2019-06-12 04:03] LABS: ALLEN TEST YES; BE 4.5 mmoll (-3.0-3.0); BLOOD TYPE ARTERIAL; HCO3-(ACT) 28.3 mmoll (20.0-26.0); O2(CT) 15.6 mL/dL (15.0-23.0); O2HB 90.2 % (95.0-99.0); PO2(98.6) 58 mmHg (60-100); SAMPLE BLOOD; SAO2 92.9 % (95.0-100.0); THB 12.3 g/dL (11.5-17.4); pH(98.6) 7.34 (7.35-7.45)
[2019-06-12 04:06] LABS: MODALITY ROOM AIR; PCO2(98.6) 59 mmHg (35-45)
[2019-06-12] MEDS: MORPHINE IV PRN ×4 (04:15→23:11)
[2019-06-12] MEDS: SOLU-MEDROL IV SCH ×4 (04:16→22:10)
[2019-06-12] MEDS: HEPARIN SUBQ SCH ×3 (04:24→20:20)
[2019-06-12] MEDS: HUMULIN R SUBQ SCH ×4 (06:21→20:28)
[2019-06-12 07:16] LABS: BASO# 0.03 X1000 (0.0-0.2); BASO% 0.2 % (0.0-0.8); HEMATOCRIT 39.1 % (37.0-47.0); HEMOGLOBIN 11.8 g/dL (12.0-16.0); IMM GRAN# 0.44 X1000 (0.0-0.04); IMM GRAN% 2.7 % (0.0-0.5); LYMPH# 1.66 X1000 (1.2-3.4); LYMPH% 10.2 % (20.5-51.1); MCHC 30.2 g/dL (33-37); MCV 76.4 FL (81-99); MONO# 1.11 X1000 (0.11-0.59); MONO% 6.8 % (1.7-9.3); MPV 11.3 FL (7.4-10.4); NEUT# 13.09 X1000 (1.4-6.5); NEUT% 80.1 % (42.2-75.2); PLT 384 X1000 (130-400); RBC 5.12 XMIL (4.2-5.4); RDW 15.1 % (11.5-14.5); WBC 16.33 X1000 (4.8-10.8)
[2019-06-12 07:23] LABS: AGAP 14; BUN 25 mg/dL (8-22); CALCIUM 8.9 mg/dL (8.8-10.2); CHLORIDE 100 mmol/L (98-107); COSMO 294; CREATININE 0.9 mg/dL (0.5-0.9); ESTIMATED GFR > 60; GLUCOSE 184 mg/dL (70-104); MAGNESIUM 2.1 mg/dL (1.5-2.7); PHOSPHORUS 3.6 mg/dL (2.7-4.5); POTASSIUM 4.2 mmol/L (3.5-5.1); SODIUM 143 mmol/L (136-145); TCO2 29 mmol/L (25-35)
[2019-06-12] MEDS: MUCINEX PO SCH ×2 (08:00→20:20)
[2019-06-12] MEDS: ZANAFLEX PO SCH (08:00)
[2019-06-12] MEDS: LOPRESSOR PO SCH ×2 (08:00→20:20)
[2019-06-12] MEDS: CELEXA PO SCH (08:00)
[2019-06-12] MEDS: SYMBICORT 160/4.5 MICROGM INHALER INH SCH ×2 (08:10→19:15)
--- NOTE | 2019-06-12 10:19 | PROGRESS NOTE ---
DATE: 06/12/2019 SUBJECTIVE: This patient is still having shortness of breath and wheezing. I will increase the dose of the steroids. I will also request an echocardiogram. I will continue with same management. Pulmonary Department on board. OBJECTIVE: Vital Signs: Temperature 97.9 degrees, pulse 85, respiratory rate 20, blood pressure 165/95, oxygen saturation 97% on 2 L of nasal cannula. HEENT: Head normocephalic, no trauma. PERRLA. Neck: Supple. No JVD. No masses. Central trachea. Chest: Decreased breath sounds globally with prolonged expiratory phase and expiratory wheezing bilaterally. Some crepitus at the bases. Abdomen: Soft, protuberant, nontender, nondistended. No hepatosplenomegaly. Extremities: 1+ edema. No clubbing. No cyanosis. Neurological examination: The patient is alert. She is oriented x3. No focal deficits. LABORATORY: WBC 16.3, hemoglobin 11.8, hematocrit 39.1, platelets 384. Sodium 143, potassium 4.2, chloride 100, bicarbonate 29. BUN 25, creatinine 0.9, glucose 184, calcium 8.9, phosphorus 3.6, magnesium 2.1. ASSESSMENT AND PLAN: 1. Asthma overlap with chronic obstructive pulmonary disease exacerbation. This patient is still smoking. We had a large conversation about smoking cessation, she seems to understand. I will continue with steroids, but I will increase the dose because this patient is still having expiratory wheezing bilaterally, continue with breathing treatment. Continue with the rest of the management, including oxygen. Pulmonary Department on board. 2. Community-acquired pneumonia. Continue with ceftriaxone and azithromycin. 3. Hypoxemic respiratory failure. She seems to be better, but she has been using oxygen mostly during the night, but likely this is more related to hypoventilation syndrome, and actually she has been hypercarbic also. 4. Possible component of acute cor pulmonale. She seems to be about the same compared with yesterday. I have requested an echocardiogram today. 5. Tobacco use and abuse. This patient has been highly advised against tobacco use. I will continue with daily cessation education. 6. Morbid obesity with a body mass index above 60. Aware. Diet and exercise has been discussed in length. 7. History of depression. Aware. 8. Osteoarthritis. Aware. cc: Seven Zhang MD
[2019-06-12] MEDS ORDERED: MILK OF MAGNESIA PO PRN (14:05)
--- NOTE | 2019-06-12 14:10 | ECHO REPORT ---
ORDER DATE: 06/12/2019 INTERPRETING PHYSICIAN: Dr. Sunil Gonzalez. ECHOCARDIOGRAPHIC MEASUREMENTS: 1. Interventricular septum 1.2. 2. Left ventricular posterior wall 1.4. 3. Diastolic diameter 5.0. 4. Left atrium 4.1. 5. Aorta 3.0. SUMMARY OF THE 2-DIMENSIONAL IMAGIN. Technically suboptimal study. Poor acoustic window. 2. Optison was used to assess left ventricular systolic function. Normal left ventricular cavity size. Concentric left ventricular hypertrophy. Estimated ejection fraction of 60%. 3. Mitral valve was normal. 4. Pulmonic valve was normal. 5. Aortic valve leaflets were trileaflet. 6. There is moderate tricuspid regurgitation. Peak velocity across the tricuspid valve was 3.8 m/sec. 7. Pulmonary artery systolic pressure of 69 mmHg. There is pulmonary arterial hypertension. 8. There is mild mitral regurgitation. 9. There is no aortic stenosis or regurgitation. 10. Right ventricle was mildly dilated with reduced right ventricular systolic function. cc: MD Seven Reid MD
[2019-06-12] MEDS: MUCOMYST 20% INH SCH (19:15)
[2019-06-12] MEDS: AMBIEN PO SCH (20:20)
[2019-06-12] MEDS: ROCEPHIN 1 GM in NS 50 ML IV SCH (22:10)
[2019-06-13] MEDS: ZITHROMAX 500 MG/NS 500 MG/250 ML IVPB IV SCH ×2 (00:06→23:00)
[2019-06-13] MEDS: DUONEB (A & A) INH SCH ×6 (04:20→23:27)
[2019-06-13] MEDS: HEPARIN SUBQ SCH ×3 (04:30→20:38)
[2019-06-13] MEDS: SOLU-MEDROL IV SCH ×2 (04:30→16:42)
[2019-06-13] MEDS: NORCO-10 PO PRN ×3 (05:22→22:35)
[2019-06-13 06:11] LABS: BASO# 0.05 X1000 (0.0-0.2); BASO% 0.3 % (0.0-0.8); EOS# 0.01 X1000 (0.0-0.7); EOS% 0.1 % (0.0-10.0); HEMATOCRIT 39.7 % (37.0-47.0); IMM GRAN# 0.83 X1000 (0.0-0.04); IMM GRAN% 4.7 % (0.0-0.5); LYMPH# 2.21 X1000 (1.2-3.4); LYMPH% 12.4 % (20.5-51.1); MCH 22.9 PG (27-31); MCHC 30.2 g/dL (33-37); MCV 75.8 FL (81-99); MONO# 1.36 X1000 (0.11-0.59); MONO% 7.6 % (1.7-9.3); MPV 11.2 FL (7.4-10.4); NEUT# 13.33 X1000 (1.4-6.5); NEUT% 74.9 % (42.2-75.2); PLT 418 X1000 (130-400); RBC 5.24 XMIL (4.2-5.4); WBC 17.79 X1000 (4.8-10.8)
[2019-06-13 06:31] LABS: AGAP 12; BUN 20 mg/dL (8-22); CALCIUM 9.1 mg/dL (8.8-10.2); CHLORIDE 96 mmol/L (98-107); COSMO 280; ESTIMATED GFR > 60; GLUCOSE 158 mg/dL (70-104); POTASSIUM 4.2 mmol/L (3.5-5.1); SODIUM 137 mmol/L (136-145); TCO2 29 mmol/L (25-35)
[2019-06-13] MEDS: HUMULIN R SUBQ SCH ×4 (06:38→20:45)
[2019-06-13 06:51] LABS: LYMPHS 10 % (21-51); MONO 4 % (1-9); SEGS 76 % (42-75)
[2019-06-13] MEDS: MUCOMYST 20% INH SCH ×2 (07:44→19:06)
[2019-06-13] MEDS: SYMBICORT 160/4.5 MICROGM INHALER INH SCH ×2 (07:48→19:06)
[2019-06-13] MEDS: LOPRESSOR PO SCH ×2 (08:29→20:38)
[2019-06-13] MEDS: CELEXA PO SCH (08:29)
[2019-06-13] MEDS: MUCINEX PO SCH ×2 (08:29→20:38)
[2019-06-13] MEDS: APRESOLINE PO SCH ×3 (08:29→16:42)
[2019-06-13] MEDS: MORPHINE IV PRN ×2 (08:34→16:43)
[2019-06-13] MEDS ORDERED: LASIX IV ONE (08:55)
--- NOTE | 2019-06-13 10:59 | PROGRESS NOTE ---
DATE: 06/13/2019 SUBJECTIVE: The patient seems to be feeling better but she is still having bilateral wheezing, some crepitus at the bases, and lower extremity edema around trace to 1+. She had an echocardiogram done yesterday that showed a good ejection fraction but pulmonary hypertension, which is suspected due to her obesity and COPD history. I discussed the findings with her. I will decrease the dose of the steroids and I will transfer this patient to the floor. I will start physical therapy today. OBJECTIVE: Vital Signs: Temperature 98.2 degrees, pulse 71, respiratory rate 17, blood pressure 180/97, oxygen saturation 93 on room air. HEENT: Head normocephalic. No trauma. PERRLA. Neck: Supple. No JVD. No masses. Central trachea. Chest: Decreased breath sounds globally with prolonged expiratory phase and expiratory wheezing bilaterally, crepitus at the bases. Abdomen: Soft, protuberant, nontender, nondistended. No hepatosplenomegaly. Extremities: There is 1+ lower extremity edema. No clubbing. No cyanosis. Neurological Examination: The patient is alert. She is oriented x3. No focal deficits. Laboratory: WBC 17.7, hemoglobin 12, hematocrit 39.7, platelets 418,000. Sodium 137, potassium 4.2, chloride 96, bicarbonate 29, BUN 20, creatinine 1, glucose 158, calcium 9.1. ASSESSMENT AND PLAN: 1. Asthma overlapped with chronic obstructive pulmonary disease exacerbation. This patient is still smoking. We had a large conversation about smoking cessation and she is willing to quit smoking. I will decrease the dose of the steroids and I will transfer this patient to the floor. She seems to be stable. I do believe this patient can be discharged in the next 24 to 48 hours. 2. Community-acquired pneumonia. Continue with ceftriaxone and azithromycin. 3. Hypoxemic respiratory failure. She seems to be better but she probably will need to use some oxygen once she goes home. Likely, this is related also to hypoventilation syndrome. Actually, she also has been hypercarbic. 4. Possible component of acute cor pulmonale. She seems to be about the same compared with yesterday. Some fluid overload. I will give her a dose of Lasix today. Pulmonary hypertension has been shown on the echocardiogram. 5. Tobacco use and abuse. This patient has been highly advised against tobacco use. I will continue with daily cessation education. 6. Morbid obesity with a body mass index of more than 60. Aware. Diet and exercise have been discussed at length. 7. History of depression. Aware. 8. Osteoarthritis. Aware. 9. Hypertension. I have started this patient on hydralazine 3 times a day and I will continue with her metoprolol. Also, she will receive a dose of Lasix. cc: Seven Zhang MD
[2019-06-13] MEDS: AMBIEN PO SCH (20:38)
[2019-06-13] MEDS: ROCEPHIN 1 GM in NS 50 ML IV SCH (21:26)
[2019-06-13] MEDS: ZOFRAN IV PRN (22:36)
[2019-06-14] MEDS: DUONEB (A & A) INH SCH ×3 (03:18→11:41)
[2019-06-14] MEDS: SOLU-MEDROL IV SCH (05:42)
[2019-06-14] MEDS: HEPARIN SUBQ SCH (05:46)
[2019-06-14 06:12] LABS: BASO# 0.12 X1000 (0.0-0.2); BASO% 0.7 % (0.0-0.8); EOS# 0.02 X1000 (0.0-0.7); EOS% 0.1 % (0.0-10.0); HEMATOCRIT 36.5 % (37.0-47.0); HEMOGLOBIN 11.3 g/dL (12.0-16.0); IMM GRAN# 0.72 X1000 (0.0-0.04); IMM GRAN% 4.3 % (0.0-0.5); LYMPH# 2.55 X1000 (1.2-3.4); LYMPH% 15.4 % (20.5-51.1); MCH 23.5 PG (27-31); MCV 75.9 FL (81-99); MONO# 1.49 X1000 (0.11-0.59); MPV 11.5 FL (7.4-10.4); NEUT# 11.66 X1000 (1.4-6.5); NEUT% 70.5 % (42.2-75.2); PLT 341 X1000 (130-400); RBC 4.81 XMIL (4.2-5.4); RDW 14.9 % (11.5-14.5); WBC 16.56 X1000 (4.8-10.8)
[2019-06-14] MEDS: HUMULIN R SUBQ SCH ×2 (06:14→10:59)
[2019-06-14 06:17] LABS: AGAP 14; BUN 22 mg/dL (8-22); CALCIUM 8.7 mg/dL (8.8-10.2); CHLORIDE 98 mmol/L (98-107); COSMO 283; ESTIMATED GFR > 60; GLUCOSE 135 mg/dL (70-104); MAGNESIUM 2.4 mg/dL (1.5-2.7); PHOSPHORUS 3.4 mg/dL (2.7-4.5); POTASSIUM 4.8 mmol/L (3.5-5.1); SODIUM 139 mmol/L (136-145); TCO2 27 mmol/L (25-35)
[2019-06-14] MEDS: NORCO-10 PO PRN (06:20)
[2019-06-14 06:52] LABS: HEMOGLOBIN A1C 6.3 % (4.8-6.0)
--- NOTE | 2019-06-14 07:13 | Diag Imaging Result Doc PS360 ---
EXAM: CHEST-PORTABLE HISTORY: dyspnea TECHNIQUE: Single view COMPARISON: 06/11/2019 FINDINGS: The heart remains enlarged. Mild vascular prominence. No consolidation. There is likely a tiny left effusion. IMPRESSION: Cardiomegaly with mild pulmonary edema Electronically signed by Garrick Baugh 06/14/2019 7:10 AM
[2019-06-14] MEDS: MUCOMYST 20% INH SCH (07:49)
[2019-06-14] MEDS: SYMBICORT 160/4.5 MICROGM INHALER INH SCH (07:49)
[2019-06-14 08:18] LABS: BANDS 1 % (0-1); LARGE PLATELETS 2+; LYMPHS 24 % (21-51); MONO 1 % (1-9); SEGS 74 % (42-75)
[2019-06-14] MEDS: MUCINEX PO SCH (10:57)
[2019-06-14] MEDS: LOPRESSOR PO SCH (10:58)
[2019-06-14] MEDS: APRESOLINE PO SCH (10:58)
[2019-06-14] MEDS: CELEXA PO SCH (10:58)
[2019-06-14 11:52] VITALS: BP 148/79
--- NOTE | 2019-06-14 14:43 | DISCHARGE SUMMARY ---
ADMISSION DATE: 06/07/2019 DISCHARGE DATE: 06/14/2019 ADMISSION DIAGNOSES: 1. Left lower lobe pneumonia. 2. Hypoxemic and hypercarbic hypercapnic respiratory failure. 3. Chronic obstructive pulmonary disease exacerbation. 4. Hypertension. 5. Diabetes mellitus type 2. 6. Morbid obesity with a body mass index of 60.1. DISCHARGE DIAGNOSES: 1. Asthma overlapped with chronic obstructive pulmonary disease exacerbation in a patient that continues to smoke. 2. Community-acquired pneumonia. 3. Hypoxemic respiratory failure. 4. Hypercarbic respiratory failure. 5. Possible component of cor pulmonale. 6. Tobacco use and abuse. 7. Morbid obesity with a body mass index of greater than 60. 8. Depression. 9. Hypertension. CONSULTANTS: Dr. Jose Garrido of Pulmonology. DIAGNOSTICS: 1. 06/07/2019: Chest x-ray revealed very low lung volumes and increased opacity at the left lung base suggesting possible developing consolidation. 2. 06/09/2019: Chest x-ray, better inspiration and decrease in opacity at the left lung base. 3. 06/11/2019: Chest x-ray, no change from prior exam. 4. 06/14/2019: Cardiomegaly with pulmonary edema. No consolidation. 5. Echocardiogram revealed ejection fraction of 60% with concentric left ventricular hypertrophy. Pulmonary artery arterial hypertension. Right ventricle is mildly dilated with reduced right ventricular systolic function. 6. Microbiology blood culture 06/07/2019 revealed coagulase negative Staphylococcus. 7. Throat culture revealed no group A strep isolated. 8. Stool culture revealed no Salmonella Shigella Campylobacter or E. coli isolated. 9. Sputum culture revealed normal albert. No bacteria seen. 10. Blood cultures 06/07/2019, left antecubital culture revealed no growth, right antecubital revealed coag-negative Staphylococcus which is felt to be contamination. HOSPITAL COURSE: Ms Simms presented to the emergency room complaining of shortness of breath. She was placed on BiPAP in the [place] [facility] and transferred to [facility] to PCU. Pulmonary was consulted Dr. Garrido managed her BiPAP and oxygen. She was given steroids to taper along with duo nebs. Thankfully, she has improved. Today, she is breathing better. She does have some bilateral wheezes although this has decreased lower extremity edema continues, although now it is only trace. Physical therapy evaluated the patient. She ambulated in the hallway using a front wheel walker and it was recommended that she have outpatient physical therapy. She did receive Rocephin and azithromycin throughout the hospitalization with cultures as stated before. Echocardiogram revealed a component of acute cor pulmonale. She was given IV Lasix. Smoking cessation was discussed with the patient per the hospitalist service as well as Dr. Garrido and at this time the patient states that she is interested in smoking cessation. Diet and exercise were discussed with the patient at length due to her morbid obesity with a BMI of greater than 60 and the fact that her hypoxemic hypercarbic respiratory failure is likely relate related to hypoventilation syndrome secondary to her weight. She did voice understanding on this. DISCHARGE VITAL SIGNS: Blood pressure is 148/79 with a heart rate of 80, respirations 16, temperature is 98.4 degrees oral with O2 saturations 98% to 100% on 2 L nasal cannula. DISCHARGE PHYSICAL EXAMINATION: Cardiovascular: Regular rate and rhythm. S1 and S2 appreciated. She has 1+ bilateral lower extremity edema. Calves are nontender with peripheral pulses palpable x4 extremities. Pulmonary: Breath sounds are diminished throughout with scattered expiratory wheezes. She does have a prolonged expiratory phase. Chest rises and falls symmetric with respiration. Gastrointestinal: Abdomen is large, soft, nontender, nondistended with bowel sounds in all 4 quadrants. Neurologic: She is alert oriented x3. DISCHARGE MEDICATIONS: 1. Ambien 10 mg p.o. at bedtime. 2. Medrol Dosepak as directed. 3. Milk of magnesia 30 mL p.o. b.i.d. p.r.n. 4. Hydralazine 25 mg p.o. t.i.d. 5. Mucinex 1200 p.o. q.12 hours. 6. Celexa 40 mg p.o. daily. 7. Chlorthalidone 25 mg p.o. b.i.d. 8. Symbicort 160/4.5 two puffs b.i.d. 9. Tylenol 650 p.o. q.6 hours. 10. Metoprolol 25 mg p.o. b.i.d. FOLLOWUP: 1. Dr. Liset Smith. She needs to call the office Monday to schedule an appointment within the next week, sooner if needed. 2. She has been instructed to call to be seen sooner or return to the emergency room for any syncope, dizziness, chest pain, palpitations, any nausea, vomiting, diarrhea, constipation, black or bloody vomitus or stools, any increasing shortness of breath, PND, orthopnea, hemoptysis, temperature greater than 101, or any questions or concerns that she may have. The patient did qualify for home O2. This was arranged by case management through [facility]. She is being discharged home with her daughter in stable condition. TIME SPENT: This is a greater than 30 minute discharge. Dictated by RUSSEL Cordova for Seven Zhang MD cc: RUSSEL Cordova MD
== END 2019-06-14 13:00 | disposition home or self-care (01) | DRG 193 ==
LOC: P.ED 20:45 → 2N 23:51 → SUATTDRO 23:51 → 1N 06-13 11:36
PROVIDERS: ATTEND Internal Medicine

== ENCOUNTER 2019-09-05 13:21 | Inpatient (IN) ==
[2019-09-05] MEDS ORDERED: SOLU-MEDROL IV ONE (13:57)
--- NOTE | 2019-09-05 13:57 | EKG Report ---
Test Performed on : 09/05/2019 1:40:01 PM Test Reason : SOB Blood Pressure : / mmHG Vent. Rate : 115 BPM Atrial Rate : 115 BPM P-R Int : 156 ms QRS Dur : 064 ms QT Int : 324 ms P-R-T Axes : 034 031 051 degrees QTc Int : 448 ms Sinus tachycardia. Possible Left atrial enlargement Borderline ECG No previous ECGs available Unconfirmed Result
--- NOTE | 2019-09-05 14:14 | Diag Imaging Result Doc PS360 ---
EXAM: CHEST-1 VIEW HISTORY: dyspnea TECHNIQUE: Single view COMPARISON: 06/14/2019 FINDINGS: Suboptimal exam due to the patient's body habitus and technique. The heart remains enlarged. There are central vascular distention There appear to be bilateral infiltrates. Superimposed shadows or loculated effusion along left. IMPRESSION: Cardiomegaly with pulmonary edema and possibly underlying pneumonia. Electronically signed by Garrick Baugh 09/05/2019 2:12 PM
[2019-09-05 14:49] LABS: BASO# 0.02 X1000 (0.0-0.2); BASO% 0.2 % (0.0-0.8); EOS# 0.09 X1000 (0.0-0.7); EOS% 0.7 % (0.0-10.0); HEMATOCRIT 35.9 % (37.0-47.0); IMM GRAN# 0.09 X1000 (0.0-0.04); IMM GRAN% 0.7 % (0.0-0.5); LYMPH# 1.43 X1000 (1.2-3.4); LYMPH% 11.3 % (20.5-51.1); MCH 22.8 PG (27-31); MCHC 30.6 g/dL (33-37); MCV 74.5 FL (81-99); MONO# 0.97 X1000 (0.11-0.59); MONO% 7.7 % (1.7-9.3); MPV 10.9 FL (7.4-10.4); NEUT# 10.02 X1000 (1.4-6.5); NEUT% 79.4 % (42.2-75.2); PLT 280 X1000 (130-400); RBC 4.82 XMIL (4.2-5.4); RDW 16.2 % (11.5-14.5); WBC 12.62 X1000 (4.8-10.8)
[2019-09-05 15:04] LABS: INR 0.97; PTT 33.1 Seconds (22.3-41.8)
[2019-09-05] MEDS ORDERED: DUONEB (A & A) ONE (15:14)
[2019-09-05 15:17] LABS: AGAP 12; ALB/GLOB RATIO 1.3; ALBUMIN 3.7 g/dL (3.5-5.0); ALKALINE PHOSPHATASE 90 U/L (32-104); BUN 7 mg/dL (8-22); CALCIUM 8.9 mg/dL (8.8-10.2); CHLORIDE 103 mmol/L (98-107); CK PROFILE 121 U/L (24-173); COSMO 277; CREATININE 0.7 mg/dL (0.5-0.9); ESTIMATED GFR > 60; GLUCOSE 124 mg/dL (70-104); GOT 9 U/L (10-30); GPT 6 U/L (10-36); POTASSIUM 4.1 mmol/L (3.5-5.1); SODIUM 139 mmol/L (136-145); TCO2 24 mmol/L (25-35); TOTAL PROTEIN 6.6 g/dL (6.3-8.3)
[2019-09-05] MEDS ORDERED: LASIX IV ONE (17:34)
[2019-09-05] MEDS ORDERED: DOXYCYCLINE PO ONE (17:34)
[2019-09-05] MEDS ORDERED: ROCEPHIN 2 GM in NS 50 ML IV ONE (17:34)
--- NOTE | 2019-09-05 18:20 | PROVIDER DOCUMENTATION ---
This chart was entered by Toña Lemus Scribe, acting as scribe for Yusuf Alanis MD. HPI-Respiratory General - General Chief Complaint: Shortness of Breath Stated Complaint: DIFFICULTY BREATHING Time Seen by Provider: 09/05/19 13:31 Source: patient Allergies/Adverse Reactions: Patient Allergies Allergy/AdvReac Type Severity Reaction Status Date / Time Iodinated Contrast Media Allergy Severe HIVES Verified 06/07/19 20:51 Home Medications: Home Medication List Medication Instructions Recorded Confirmed Last Taken Type Chlorthalidone 1 tab PO BID 03/31/19 06/08/19 1 Week Ago History ~06/01/19 1 Metoprolol [Lopressor] 1 tab PO BID 03/31/19 06/08/19 2 Days Ago History ~06/06/19 1 Zolpidem [Ambien] 1 tab PO HS 03/31/19 06/08/19 1 Week Ago History ~06/01/19 1 Acetaminophen [Tylenol] 650 mg PO Q6H PRN PRN tab 06/14/19 Unknown Rx Budesonide/Formoterol Inhaler 2 puff INH RTBID #1 inhaler 06/14/19 Unknown Rx [Symbicort 160/4.5 Microgm Inhaler] Citalopram [Celexa] 40 mg PO QAM #120 tab 06/14/19 Unknown Rx Guaifenesin E.r. [Mucinex] 1,200 mg PO Q12HR #20 tab 06/14/19 Unknown Rx Hydralazine [Apresoline] 25 mg PO TID #90 tab 06/14/19 Unknown Rx Magnesium Hydroxide [Milk of 30 ml PO BID PRN PRN udc 06/14/19 Unknown Rx Magnesia] Methylprednisolone [Medrol Dosepak] 4 mg PO DIRECTED #1 pkg 06/14/19 Unknown Rx - History of Present Illness-Resp Nature of Presenting Problem: Patient is a 48 year old female who presents to the ED via EMS with shortness of breath. States shortness of breath has been present for 2 days. History of COPD, Asthma and CHF. Reports she uses 2 L of oxygen 24/. Denies fever. States having a productive cough and one episode of hemopytsis. Quality of Pain: reports: none Severity in ED: reports: moderate Onset/Duration: reports: 2 days ago Timing: reports: still present Cough Quality/Degree: reports: moderate, productive cough, blood streaked sputum (1 episode) Current Respiratory Medication Therapy: Initiated see nurses note Associated Symptoms: reports: cough, shortness of breath. denies: fever/chills Similar Symptoms Previously?: Yes Recently seen or treated by another doctor?: Yes Review of Systems - Adult - REVIEW OF SYSTEMS - ADULT ROS:: limited per condition Constitutional: reports: no symptoms reported. denies: fever Eyes: reports: no symptoms reported Ears, Nose, Mouth & Throat: reports: no symptoms reported Cardiovascular: reports: no symptoms reported Respiratory: reports: see HPI, cough, hemoptysis (1 episode), shortness of breath Gastrointestinal: reports: no symptoms reported Genitourinary: reports: no symptoms reported Musculoskeletal: reports: no symptoms reported Integumentary: reports: no symptoms reported Neurological: reports: no symptoms reported Psychiatric: reports: no symptoms reported Endocrine: reports: no symptoms reported Hematologic/Lymphatic: reports: no symptoms reported Allergic/Immunologic: reports: no symptoms reported All Other Systems: Reviewed and Negative Past History - Adult - PAST MEDICAL HISTORY-ADULT Review of Records: reports: Old Records Reviewed, Nursing Assessment Review, Medications Reviewed, Social history reviewed & non-contributory. Major Childhood Illnesses: reports: denies history Cardiovascular: reports: HTN, hyperlipidemia Respiratory: reports: asthma, COPD Gastrointestinal: reports: denies history Obstetrical/Gynecological: reports: denies history Genitourinary: reports: denies history Musculoskeletal: reports: denies history Neurological: reports: CVA, other (aneursym) Endocrine/Immune: reports: Diabetes Other Conditions: reports: denies history - PRIOR SURGERIES/PROCEDURES Surgical/Procedure History: reports: BTL, tonsillectomy, hernia repair, other (ANEURYSM) - IMMUNIZATION STATUS Childhood Immunizations: See Nurse Assessment Flu Vaccine: See Nurse Assessment - FAMILY HISTORY Family History: reviewed, not pertinent - SOCIAL HISTORY Smoking: cigarettes, less than 1 pack/day Provider spent 3-5 mins advising pt. on dangers of tobacco.: Discussed manners to quit use, and f/u contacts for add'l counseling. Substance Use: denies Physical Exam-General - PHYSICAL EXAM-ADULT Initial Vital Signs Reviewed: Yes - CONSTITUTIONAL General Appearance: alert, mild distress, obese - RESPIRATORY Respiratory: chest non-tender, respiratory distress (mild), decreased breath sounds (diminished), wheezing (diffuse expiratory wheezing bilaterally.), increased rate - CARDIOVASCULAR Cardiovascular: tachycardia - SKIN Integumentary: normal color, normal turgor, warm/dry - NEUROLOGIC Neurologic: grossly normal - PSYCHIATRIC Psych/Mental Status: normal mood/affect, oriented x 3 Progress - PLAN OF CARE/RESULTS Progress/Plan/Lab Results: Vital Signs - 8 hr 09/05/19 13:34 09/05/19 15:14 Temperature 98.7 F Pulse Rate 114 H 102 H Respiratory Rate 28 H 19 Blood Pressure 189/107 O2 Sat by Pulse Oximetry 88 L 96 Laboratory Results - last 24 hr 09/05/19 09/05/19 09/05/19 14:40 14:40 14:40 WBC RBC Hgb Hct MCV MCH MCHC RDW Std Deviation Plt Count MPV Immature Gran % (Auto) Neut % (Auto) Lymph % (Auto) [place] % (Auto) Eos % (Auto) Baso % (Auto) Immature Gran # (Auto) Neut # (Auto) Lymph # (Auto) [place] # (Auto) Eos # (Auto) Baso # (Auto) PT INR PTT (Actin FS) Sodium 139 Potassium 4.1 Chloride 103 Carbon Dioxide 24 L Anion Gap 12 BUN 7 L Creatinine 0.7 Estimated GFR/1.73 m2 > 60 BUN/Creatinine Ratio 10 Glucose 124 H Calculated Osmolality 277 Calcium 8.9 Total Bilirubin 0.40 AST 9 L ALT 6 L Alkaline Phosphatase 90 Creatine Kinase 121 Troponin T High Sens 10 [id number]-Pdzmoljhrpd Pept 678 H Total Protein 6.6 Albumin 3.7 Globulin 2.9 Albumin/Globulin Ratio 1.3 09/05/19 09/05/19 14:40 14:40 WBC 12.62 H RBC 4.82 Hgb 11.0 L Hct 35.9 L MCV 74.5 L MCH 22.8 L MCHC 30.6 L RDW Std Deviation 16.2 H Plt Count 280 MPV 10.9 H Immature Gran % (Auto) 0.7 H Neut % (Auto) 79.4 H Lymph % (Auto) 11.3 L [place] % (Auto) 7.7 Eos % (Auto) 0.7 Baso % (Auto) 0.2 Immature Gran # (Auto) 0.09 H Neut # (Auto) 10.02 H Lymph # (Auto) 1.43 [place] # (Auto) 0.97 H Eos # (Auto) 0.09 Baso # (Auto) 0.02 PT 13.0 INR 0.97 PTT (Actin FS) 33.1 Sodium Potassium Chloride Carbon Dioxide Anion Gap BUN Creatinine Estimated GFR/1.73 m2 BUN/Creatinine Ratio Glucose Calculated Osmolality Calcium Total Bilirubin AST ALT Alkaline Phosphatase Creatine Kinase Troponin T High Sens [id number]-Ijoxjdaloxj Pept Total Protein Albumin Globulin Albumin/Globulin Ratio Orders Category Date Time Status Cardiac Monitoring DIRECTED Care 09/05/19 13:56 Active Nursing- Obtain EKG ONCE Care 09/05/19 13:54 Active Oxygen Therapy- ED Nursing DIRECTED Care 09/05/19 13:56 Active Saline Loc NOW Care 09/05/19 13:56 Active CHEST-1 VIEW [RAD] Stat Exams 09/05/19 13:57 Completed BLOOD CULTURE [BLDCUL] Stat Lab 09/05/19 17:39 Uncollected CBC WITH ELECTRONIC DIFF [HEME] Stat Lab 09/05/19 14:40 Completed CK PROFILE [SP CHEM] Stat Lab 09/05/19 14:40 Completed COMPREHENSIVE METABOLIC PANEL [CHEM] Stat Lab 09/05/19 14:40 Completed INFLUENZA SCREEN A/B Stat Lab 09/05/19 17:45 Uncollected PRO B-NATRIURETIC PEPTIDE Stat Lab 09/05/19 14:40 Completed PROTIME WITH INR [COAG] Stat Lab 09/05/19 14:40 Completed PTT [COAG] Stat Lab 09/05/19 14:40 Completed TROPONIN T HIGH SENSITIVITY Stat Lab 09/05/19 14:40 Completed Albuterol 2.5MG/Ipratrop 0.5MG [Duoneb (A & A)] Med 09/05/19 15:14 Discontinued 3 ml .ROUTE .STK-MED ONE CefTRIAXONE [Rocephin] 2 gm Med 09/05/19 17:34 Discontinued 0.9% Sodium Chloride Inj [Ns] 50 ml IV NOW Doxycycline Med 09/05/19 17:34 Discontinued 100 mg PO NOW ONE Furosemide [Lasix] Med 09/05/19 17:34 Discontinued 80 mg IV NOW ONE Methylprednisolone Sod Succ [Solu-Medrol] Med 09/05/19 13:57 Discontinued 125 mg IV NOW ONE Aerosol Treatments Stat Oth 09/05/19 13:56 Completed Asthma/COPD (Adult) Stat Oth 09/05/19 13:55 Ordered CP/SOB/Palp >45 yrs of Age Stat Oth 09/05/19 13:56 Ordered EKG [EKG] Stat Ther 09/05/19 13:54 Draft Result Diagrams: 09/05/19 14:40 09/05/19 14:40 - REASSESSMENT Reassessment #2 Time Reassessed: 17:15 Status: improving (much improved air movement after nebs; Rad believes pt has PNA behind Pulm edema. pt recorded afebrile here but states she has had chills. Rocephin and Doxy/blood culture ordered, flu screen ordered. Lasix given, will admit) - EKG 1 Time of EKG reading by physician:: 13:40 EKG Read and Signed by:: Yusuf Alanis EKG Interpretation (*Must complete 3 of following elements*): Abnormal Rate: 115 Rhythm: sinus tachycardia [place]: normal [place] Interval: normal Comments: possible left atrial enlargement - XRAY 1 XRAY Study: Chest Impression: See EMR Report ( EXAM: CHEST-1 VIEW HISTORY: dyspnea TECHNIQUE: Single view COMPARISON: 06/14/2019 FINDINGS: Suboptimal exam due to the patient's body habitus and technique. The heart remains enlarged. There are central vascular distention There appear to be bilateral infiltrates. Superimposed shadows or loculated effusion along left. IMPRESSION: Cardiomegaly with pulmonary edema and possibly underlying pneumonia. Electronically signed by Garrick Baugh 09/05/2019 2:12 PM 09/05/19 1412 Interpreting Physician: Garrick Baugh MD Dictated Date/Time: 09/05/19 1410 cc: Yusuf Alanis MD; Liset Christy MD) - CONSULTS/PCP/HOSPITALIST Notification #1 *Consult/PCP/Hospitalist*: Hospitalist Time Discussed: 17:30 Consult Disposition: Admit Departure - Departure Date of Disposition Decision: 09/05/19 Time of Disposition Decision: 17:30 DIAGNOSIS: Respiratory distress, acute, Pulmonary edema, Pneumonia Disposition: ADMITTED INPATIENT 09 Certified Medical Emergency: Emergent Condition: Serious Referrals and Follow-Ups: Liset Christy MD [Primary Care Provider] - Discharge Education: Steps to Quit Smoking, [id number] - Critical Care Note This patient required my direct & personal management of CC.: Yes Total Time (mins): 40 Critical Care Statement: This patient required my direct personal management to treat or rule out processes, the absence of which, could potentiallly result in sudden, clinically significant life or limb threatening deterioration. Attestation - Physician/ OBI Attestation The physician spent face to face time with patient:: Yes Advanced Practice Provider documentation review:: Supervising physician onsite and consulted in the evaluation and care of this patient. The physician did have a face to face encounter with the patient. This chart was documented by the indicated scribe, (Toña Lemus Scribe) and accurately reflects the services I performed and decisions made by me, Yusuf Alanis MD, as attested by the provider's signature.
[2019-09-05] MEDS ORDERED: ZOFRAN IV PRN (19:20)
[2019-09-05] MEDS ORDERED: TYLENOL PO PRN (19:20)
[2019-09-05] MEDS ORDERED: DOXYCYCLINE 100 MG in NS 250 ML IV SCH (19:30)
[2019-09-05] MEDS: LOVENOX SUBQ SCH ×2 (19:30→20:55)
[2019-09-05] MEDS ORDERED: ROCEPHIN ONE ×2 (20:14→20:55)
[2019-09-05] MEDS ORDERED: NS 50 ML ONE (20:14)
[2019-09-05] MEDS ORDERED: LASIX ONE (20:14)
--- NOTE | 2019-09-05 20:33 | HISTORY AND PHYSICAL ---
PRIMARY CARE PHYSICIAN: Dr. Liset Christy. CHIEF COMPLAINT: Shortness of breath. HISTORY OF PRESENT ILLNESS: Ms. Simms is a 48-year-old female with past medical history of congestive heart failure, hypertension, diabetes mellitus type 2, situational anxiety and depression, COPD, CVA x2, and brain aneurysm. The patient does present to the ER today with complaints of dyspnea, cough with congestion, wheezing, orthopnea, PND, edema, subsequent chills, dysphagia and sinusitis for the 3 days. The patient is noted to have audible expiratory wheeze. ProBNP is elevated at 678. Chest x-ray does show pulmonary edema with possible underlying pneumonia. The patient does deny any excessive thirst or urination, neck pain, stiffness, chest pain, nausea or vomiting, hematemesis, melena, constipation, dysuria, hematuria, syncope, dizziness, vertigo, headache, or any other pertinent symptoms at that time. REVIEW OF SYSTEMS: A 10 point review of systems has been obtained, are negative except what was stated above in HPI. PAST MEDICAL HISTORY: 1. Congestive heart failure. 2. Hypertension. 3. Diabetes. 4. Depression. 5. Anxiety. 6. COPD. 7. CVA x2. 8. Brain aneurysm. PAST SURGICAL HISTORY: Aneurysm repair, hernia repair, tonsillectomy, cholecystectomy, chest tube from chest trauma. FAMILY HISTORY: Positive for diabetes. SOCIAL HISTORY: The patient does smoke 2 to 3 cigarettes per day. She denies any alcohol or illicit drug use. ALLERGIES: Iodine contrast. HOME MEDICATIONS: Home medication reconciliation has not been performed. PHYSICAL EXAMINATION: VITAL SIGNS: Temperature 98.7 degrees, pulse rate 114, respiratory rate 28, blood pressure 189/107, O2 saturation 96% on 3 L nasal cannula. GENERAL: This is a 48-year-old female. She is lying in the ER stretcher. She is morbidly obese. She is well nourished and well developed. She is in no acute distress. HEENT: Atraumatic, normocephalic. Pupils equal, round, react to light. Mucous membranes are moist. NECK: Supple. No lymphadenopathy. It is hard to tell with her anatomy, though. Trachea is midline. There is no apparent JVD that I could see. CARDIOVASCULAR: Regular rate and rhythm. It is tachycardic on the monitor. There is no gallops or rubs appreciated. RESPIRATORY: There is expiratory wheezing noted. Lungs are diminished though. Respirations do not appear labored. There is no accessory muscle usage. GI: Abdomen is very large and obese. It is nontender. Bowel sounds are present x4. : There is no suprapubic tenderness noted. The patient is able to void without difficulty. NEUROLOGIC: Patient is awake, alert, oriented, able to follow all commands appropriately. MUSCULOSKELETAL: Full distal strength noted. No abnormalities. No deformities. EXTREMITIES: No clubbing, no cyanosis. There is positive edema noted to bilateral lower extremities. DP and PT pulses are present and palpable. SKIN: Warm, dry, intact. No rashes. No bruises. No diaphoresis. LABS AND DIAGNOSTICS: White blood cell count 12.62, hemoglobin 11, hematocrit 35.9, platelet count 280,000. PT 13, INR is 0.97. Sodium is 139, potassium 4.1, BUN 7, creatinine 0.7, glucose is 124. ProBNP is 678. Troponin is 10. Influenza swab is negative. Chest x- ray shows cardiomegaly with pulmonary edema and possibly underlying pneumonia. EKG shows sinus tachycardia with a rate of 115. ASSESSMENT AND PLAN: 1. Congestive heart failure with acute exacerbation. We are going to admit this patient to the medical floor. We will place this patient on campus monitor. We will do daily weights and strict input and output. I am going to have nursing place a Rivas catheter in the patient. We will do Lasix 40 mg IV q.12 hours. We will resume patient's home medications once reconciled in the computer and appropriate. I will go ahead and get CK and troponin q.8h x3. I will repeat labs in the morning. 2. Pneumonia. I am going to go ahead start this patient on Rocephin and Azithromycin. She was given a dose in the ER. We are going to do a CT of the chest without contrast and provide her with supplemental O2 and DuoNeb. 3. Chronic obstructive pulmonary disease. DuoNeb q.4 hours and supplemental O2. IV solumedrol. 4. Diabetes mellitus type 2. Diabetic diet. Fingersticks a.c. and bedtime with sliding scale insulin. We will resume her home medications once reconciled in the computer. 5. Hypertension. I have provided her p.r.n. labetalol. We will resume her home medications once reconciled in the computer. 6. Situational anxiety and depression. We will resume home medications once reconciled in the computer. 7. History of cerebrovascular accident x2. The patient does not seem to have any deficits. We are aware. 8. History of brain aneurysm. 9. Deep venous thrombosis prophylaxis. Lovenox. Dictated by RUSSEL Watkins for Jonnathan Bunch MD cc: MD Liset Yee MD I agree with most components of history, physical, assessment and plan. A separate addendum has been dictated. DAYAMI
[2019-09-05 20:35] LABS: BLOOD TYPE ARTERIAL; SAMPLE BLOOD
--- NOTE | 2019-09-05 20:37 | Diag Imaging Result Doc PS360 ---
CT THORAX W/O CONTRAST - 09/05/2019 INDICATION: dyspnea COMPARISON: Chest x-ray from earlier today FINDINGS: Lung volumes are severely low with nonspecific bilateral atelectasis. There is also extensive multifocal infiltrate bilaterally, nonspecific. Heart size is normal. Upper abdominal images are grossly normal. No pneumothorax or pleural effusion. IMPRESSION: Low lung volumes. Indeterminate bilateral infiltrates and atelectasis. This exam was performed using automated exposure control, adjustment of mA or kV according to patient size, and/or use of iterative reconstruction technique Electronically signed by Tanvir Her 09/05/2019 8:34 PM
[2019-09-05 20:38] LABS: BE -0.8 mmoll (-3.0-3.0); HCO3-(ACT) 24.2 mmoll (20.0-26.0); METHB 1.3 % (0.0-1.5); O2HB 91.5 % (95.0-99.0); PCO2(98.6) 41 mmHg (35-45); PO2(98.6) 66 mmHg (60-100); SAO2 95.6 % (95.0-100.0); THB 11.7 g/dL (11.5-17.4); pH(98.6) 7.38 (7.35-7.45)
[2019-09-05 20:39] LABS: ALLEN TEST YES; MODALITY CANNULA; O2(CT) 15.1 mL/dL (15.0-23.0)
[2019-09-05] MEDS: LASIX IV SCH (20:53)
[2019-09-05] MEDS: PRILOSEC PO SCH (20:54)
[2019-09-05] MEDS: NORCO-7.5 PO PRN (20:55)
[2019-09-05] MEDS: HUMALOG SUBQ SCH (21:00)
[2019-09-05] MEDS ORDERED: SOLU-MEDROL IV SCH (21:07)
--- NOTE | 2019-09-05 21:12 | HISTORY AND PHYSICAL ---
ADDENDUM: This is an addendum to History and Physical dictated by nurse practitioner. I agree with most of the history, physical, assessment and plan. In brief, Ms. Simms is a 48-year-old lady, with past medical history of active tobacco abuse, COPD, asthma, obstructive sleep apnea not compliant with CPAP, chronic hypoxic respiratory failure on home 2 L nasal cannula oxygen, who comes in with chief complaints of shortness of breath, sweating, fever, cough for about 3 days duration. In the emergency room, she was found to be hypoxic in respiratory distress. Chest x-ray had pulmonary edema. She was diagnosed with CHF exacerbation. The hospitalist team was consulted for further management. At the time of my evaluation, patient appears to be short of breath and has been wheezing. She is able to communicate though with me, but she appears tachypneic. CURRENT VITAL SIGNS: Temperature of 98.7 degrees, pulse 102, respiratory rate 19, blood pressure 189/107, and she was saturating 96% on 3 L nasal cannula. PHYSICAL EXAMINATION: GENERAL: Morbidly obese, in moderate distress. ORAL CAVITY: Moist. LUNGS: Significantly decreased air movement in bilateral lung leong with end-expiratory wheezes and inspiratory crackles in infrascapular region. HEART: S1, S2 normal. No murmur or gallop. ABDOMEN: Soft, nontender. EXTREMITIES: She has mild bilateral lower extremity edema. She has nasal cannula, urine catheter, bilateral dorsalis pedis and popliteal pulses. Posterior tibial pulses are adequate. Capillary refilling time is normal. SKIN: Turgor also appears normal. LABS: Suggestive of leukocytosis, microcytic anemia with hemoglobin of 11, WBC 12,000, platelet of 280,000. She does have a BUN of 20, creatinine 0.7. Troponins were negative. ProBNP was elevated. Blood cultures were collected. Influenza screen was negative. CT scan of the chest was ordered. EKG had sinus tachycardia. ASSESSMENT AND PLAN: 1. Acute on chronic hypoxic respiratory failure with possible hypercapnia. I will order stat arterial blood gases. Start patient on BiPAP for increased work of breathing. If she is not able to tolerate BiPAP, I will start her on high-flow nasal cannula. 2. Acute chronic obstructive pulmonary disease exacerbation with history of chronic obstructive pulmonary disease and asthma. A viral bronchitis could be a possibility. I will get CT scan of the chest to rule out pneumonia. I will start her on intravenous ceftriaxone, erythromycin, inhaled bronchodilators, intravenous steroids. Follow up with serial arterial blood gases. She was counseled about smoking cessation. 3. Acute congestive heart failure exacerbation with preserved ejection fraction. Last echocardiogram in May 2019 had an ejection fraction of 60%. However, she has had significant pulmonary hypertension. This could also be a presentation of acute cor pulmonale. I will start her on intravenous diuretics and monitor troponins. 4. History of obstructive sleep apnea. I will start her on BiPAP at the moment. 5. History of cerebrovascular accident and brain aneurysm. Once her medications are reconciled, I will resume those medications. 6. Essential hypertension. I will give her as needed medications intravenously. DISPOSITION: Monitor patient in PVC. Plan of care discussed with her. Her questions have been answered. cc: Jonnathan Bunch MD
[2019-09-05] MEDS: DUONEB (A & A) INH SCH (21:28)
[2019-09-05] MEDS ORDERED: NICODERM PATCH ONE (22:52)
[2019-09-05] MEDS: SOLU-MEDROL IV SCH (22:58)
[2019-09-05] MEDS: NICODERM PATCH TD SCH (23:00)
[2019-09-06] MEDS: DUONEB (A & A) INH SCH ×4 (03:25→21:59)
[2019-09-06 03:31] LABS: ALLEN TEST YES; BE 1.1 mmoll (-3.0-3.0); BLOOD TYPE ARTERIAL; HCO3-(ACT) 25.7 mmoll (20.0-26.0); METHB 0.7 % (0.0-1.5); O2(CT) 15.8 mL/dL (15.0-23.0); O2HB 95.2 % (95.0-99.0); PCO2(98.6) 45 mmHg (35-45); PO2(98.6) 88 mmHg (60-100); SAMPLE BLOOD; SAO2 98.6 % (95.0-100.0); THB 11.7 g/dL (11.5-17.4); pH(98.6) 7.38 (7.35-7.45)
[2019-09-06 03:32] LABS: MODALITY BI PAP
[2019-09-06] MEDS: NORCO-7.5 PO PRN ×4 (03:44→23:52)
[2019-09-06] MEDS: SOLU-MEDROL IV SCH ×3 (06:08→20:57)
[2019-09-06] MEDS: HUMALOG SUBQ SCH ×4 (06:48→20:58)
[2019-09-06 07:51] LABS: BASO# 0.01 X1000 (0.0-0.2); BASO% 0.1 % (0.0-0.8); HEMATOCRIT 36.3 % (37.0-47.0); HEMOGLOBIN 10.9 g/dL (12.0-16.0); IMM GRAN% 0.7 % (0.0-0.5); LYMPH# 1.09 X1000 (1.2-3.4); LYMPH% 7.7 % (20.5-51.1); MCH 22.4 PG (27-31); MCV 74.7 FL (81-99); MONO# 0.34 X1000 (0.11-0.59); MONO% 2.4 % (1.7-9.3); MPV 11.5 FL (7.4-10.4); NEUT# 12.68 X1000 (1.4-6.5); NEUT% 89.1 % (42.2-75.2); PLT 310 X1000 (130-400); RBC 4.86 XMIL (4.2-5.4); RDW 16.1 % (11.5-14.5); WBC 14.22 X1000 (4.8-10.8)
[2019-09-06 08:02] LABS: BANDS 6 % (0-1); LYMPHS 14 % (21-51); MONO 6 % (1-9); SEGS 74 % (42-75)
[2019-09-06 08:03] LABS: ANISOCYTOSIS 1+; HYPOCHROM 1+; POIKILOCYTOSIS 1+
[2019-09-06 08:04] LABS: MICROCYTOSIS 2+
[2019-09-06 08:49] LABS: AGAP 13; ALB/GLOB RATIO 1.3; ALKALINE PHOSPHATASE 87 U/L (32-104); BUN 14 mg/dL (8-22); CHLORIDE 101 mmol/L (98-107); COSMO 285; CREATININE 0.8 mg/dL (0.5-0.9); ESTIMATED GFR > 60; GLUCOSE 182 mg/dL (70-104); GOT 8 U/L (10-30); GPT 6 U/L (10-36); POTASSIUM 4.5 mmol/L (3.5-5.1); SODIUM 140 mmol/L (136-145); TCO2 26 mmol/L (25-35); TOTAL BILIRUBIN 0.29 mg/dL (0.20-1.00); TOTAL PROTEIN 7.2 g/dL (6.3-8.3)
[2019-09-06] MEDS: ZITHROMAX PO SCH (10:09)
[2019-09-06] MEDS: PRILOSEC PO SCH ×2 (10:09→20:56)
[2019-09-06] MEDS: NICODERM PATCH TD SCH (10:09)
[2019-09-06] MEDS: LASIX IV SCH ×2 (10:09→20:56)
--- NOTE | 2019-09-06 15:21 | PROGRESS NOTE ---
DATE: 09/06/[address] Liset Christy. This is a 48-year-old came in with shortness of breath 48-year-old female. Past medical history congestive heart failure, hypertension, diabetes mellitus type 2, situational anxiety and depression, COPD, CVA x2, brain aneurysm, presented to the emergency room with complaints of dyspnea, cough and congestion, wheezing, orthopnea, paroxysmal nocturnal dyspnea, edema, subsequent chills and dysphagia, sinusitis for 3 days, noted to have auditory expiratory wheezing. ProBNP was 678. Chest x-ray showed pulmonary edema with possible underlying pneumonia. Patient does deny any excessive thirst or urination, neck pain, stiffness, chest pain, nausea, vomiting, hematemesis, melena, constipation, dysuria, hematuria, syncope, dizziness, vertigo, headache. PAST MEDICAL HISTORY: 1. Congestive heart failure. 2. Hypertension. 3. Diabetes mellitus type 2. 4. Depression. 5. Anxiety. 6. COPD. 7. CVA x2. 8. Brain aneurysm in the past, she has had brain aneurysm repair, hernia repair, tonsillectomy, cholecystectomy, chest tube from chest trauma in the past. EXAM: Today she has just had a little bit of lunch. She had her nasal cannula off and she was wheezing pretty good. I put her nasal cannula back on and she is still coughing pretty good. She remains afebrile temperature 97.5 degrees, pulse 98, respirations 19, blood pressure 155/105. Pupils are equal and round.Lungs: With expiratory wheezing which improved pretty quickly after she got a little bit oxygen. Neck: Veins are not distended that I can appreciate. Abdomen: Soft. Skin: Warm and dry. ASSESSMENT AND PLAN: 1. Congestive heart failure with acute exacerbation. She is going to continue Lasix 40 mg IV q.12, continue her bronchodilators. 2. Bronchospasm I think secondary to pulmonary venous hypertension, underlying asthma. 3. Pneumonia. She is on is Rocephin and azithromycin. 4. Chronic obstructive pulmonary disease with exacerbation. 5. Diabetes mellitus type 2. Continue pattern sugars. 6. Hypertension. Watch her blood pressure. Getting labetalol p.r.n. 7. Situational anxiety and depression. Continue home medications. 8. History of cerebrovascular accident x2. 9. History of brain aneurysm with repair. Review of her orders I do not see any change at this point, is on methylprednisone 60 mg q.8. REVIEW OF LABS: Her lab from today white count 14,220, hematocrit is 36, platelet count 310,000. Sodium 140, potassium 4.5, chloride 101, BUN 14, creatinine 0.8. cc: Aayush Martinez MD
[2019-09-06] MEDS: ROBITUSSIN-DM PO PRN ×2 (15:29→20:57)
[2019-09-06] MEDS: ROCEPHIN 1 GM in NS 50 ML IV SCH (17:35)
[2019-09-06] MEDS: LOVENOX SUBQ SCH (20:56)
[2019-09-06] MEDS: TESSALON PO PRN (21:10)
[2019-09-07] MEDS ORDERED: BLISTEX MEDICATED BERRY LIP BALM TOP PRN (00:20)
[2019-09-07] MEDS: DUONEB (A & A) INH SCH ×4 (03:53→22:49)
[2019-09-07] MEDS: ROBITUSSIN-DM PO PRN ×2 (06:16→20:09)
[2019-09-07] MEDS: SOLU-MEDROL IV SCH ×3 (06:16→22:09)
[2019-09-07] MEDS: NORCO-7.5 PO PRN ×3 (06:17→19:37)
[2019-09-07] MEDS: HUMALOG SUBQ SCH ×4 (06:19→20:10)
[2019-09-07] MEDS: NICODERM PATCH TD SCH (09:35)
[2019-09-07] MEDS: ZITHROMAX PO SCH (09:36)
[2019-09-07] MEDS: PRILOSEC PO SCH ×2 (09:36→20:09)
[2019-09-07] MEDS: LASIX IV SCH ×2 (09:36→20:08)
[2019-09-07] MEDS: TESSALON PO PRN ×2 (09:50→20:09)
[2019-09-07] MEDS ORDERED: MIRALAX PO SCH (12:30)
[2019-09-07 12:35] LABS: CK INDEX 1.5 (0.0-2.5); CK-MB 2.81 ng/mL (0.0-5.0)
[2019-09-07] MEDS ORDERED: MILK OF MAGNESIA PO PRN (14:43)
--- NOTE | 2019-09-07 15:06 | PROGRESS NOTE ---
DATE: 09/07/2019 ADDENDUM: I am going to stop her Lovenox. She has had some gross hematuria. She still needs her Rivas catheter in. She was on 40 mg subcutaneous daily, and so we are going to stop that and hopefully can get her Rivas catheter out pretty soon. cc: Aayush Martinez MD
--- NOTE | 2019-09-07 15:08 | PROGRESS NOTE ---
DATE: 09/07/2019 Ms. Simms does not feel like she is breathing better, but she has a little less wheezing, but she is still wheezing, still has dyspnea with any exertion. OBJECTIVE: She remains afebrile, temperature 98 degrees, pulse 95, respirations 22, blood pressure 149/86. Last several blood pressures 189/107, 159/99, 157/71, 152/92.HEENT: Pupils are equal and round. Lungs: Clear in all lung leong. Cardiovascular: Regular rhythm and rate without murmur or S3. Abdomen: Soft. Skin: Warm and dry. ASSESSMENT AND PLAN: 1. Congestive heart failure, acute exacerbation. Continue Lasix 80 mg q.12, and bronchodilators. 2. Bronchospasm secondary to pulmonary venous hypertension, underlying asthma and obstructive apnea hypoventilation syndrome. 3. Pneumonia. Given Rocephin, azithromycin. 4. Chronic obstructive pulmonary disease with exacerbation. 5. Diabetes mellitus type 2. Continue pattern sugars. 6. Hypertension. Blood pressure is under good control. 7. Situational anxiety and depression. Continue home medications. 8. History of cerebrovascular accident x2. 9. History of brain aneurysm repair with repair in the past. REVIEW OF ORDERS: I do not see any change at this point. She is on MiraLAX to try and get her bowels going. I may increase that to twice a day and put her on some lactulose 30 mL twice a day and see if we can get her bowels going. cc: Aayush Martinez MD
[2019-09-07 17:11] LABS: URINE SOURCE CATH
[2019-09-07 17:21] LABS: BILIRUBIN URINE NEGATIVE (NEGATIVE); BLOOD URINE LARGE (NEGATIVE); COLOR ORANGE; GLUCOSE URINE NEGATIVE (NEGATIVE); KETONE URINE NEGATIVE (NEGATIVE); LEUKOCYTES URINE MODERATE (NEGATIVE); NITRITE URINE NEGATIVE (NEGATIVE); PROTEIN URINE 30 mg/dL (NEGATIVE); SP GRAVITY URINE 1.016; TURBIDITY URINE HAZY (CLEAR); UROBILINOGEN URINE NORMAL (NORMAL)
[2019-09-07 17:23] LABS: UR EPITHELIAL CELLS <10 /HPF (<10); URINE BACTERIA NEGATIVE /HPF; URINE RBC TNTC /HPF (<10); URINE WBC <10 /HPF (<10)
[2019-09-07] MEDS: LACTULOSE PO SCH ×2 (17:34→22:10)
[2019-09-07] MEDS: ROCEPHIN 1 GM in NS 50 ML IV SCH (17:35)
[2019-09-07] MEDS: MIRALAX PO SCH (20:08)
[2019-09-08] MEDS: NORCO-7.5 PO PRN ×4 (01:18→21:09)
[2019-09-08] MEDS: DUONEB (A & A) INH SCH ×4 (04:02→20:48)
[2019-09-08] MEDS: HUMALOG SUBQ SCH ×4 (06:13→21:14)
[2019-09-08] MEDS: SOLU-MEDROL IV SCH ×3 (06:13→22:55)
[2019-09-08] MEDS: PRILOSEC PO SCH ×2 (08:24→21:09)
[2019-09-08] MEDS: MIRALAX PO SCH ×2 (08:24→21:08)
[2019-09-08] MEDS: ZITHROMAX PO SCH (08:25)
[2019-09-08] MEDS: NICODERM PATCH TD SCH (08:25)
[2019-09-08] MEDS: LASIX IV SCH ×2 (08:25→21:10)
[2019-09-08] MEDS: LACTULOSE PO SCH ×2 (08:25→21:10)
[2019-09-08] MEDS: ROBITUSSIN-DM PO PRN ×2 (08:26→21:12)
[2019-09-08] MEDS: LABETALOL IV PRN (11:40)
[2019-09-08] MEDS ORDERED: STERILE WATER INJ. ONE (14:05)
--- NOTE | 2019-09-08 16:52 | PROGRESS NOTE ---
DATE: 09/08/2019 She was sitting up eating her lunch. She is breathing better. She feels like the congestion is less. She still has a good amount of wheezing. She feels like the swelling has gone down. Temp 98.4 degrees, pulse 80, respirations 23, blood pressure 180/84 but last several numbers 152/92, 155/83, 139/92. Her Rivas catheter still in place and still some blood tinged, but does not look as concentrated and no discomfort in the bladder by her report. Last several sugars 168, 186, 234, and 280. ASSESSMENT AND PLAN: 1. Congestive heart failure, acute exacerbation. Continue Lasix 80 mg IV q.12, and bronchodilators, supplemental O2. 2. Bronchospasm secondary pulmonary venous hypertension, underlying asthma, obstructive sleep apnea, hypoventilation syndrome. 3. Pneumonia. We are treating her pneumonia with Rocephin and azithromycin. 4. Chronic obstructive pulmonary disease with exacerbation. 5. Diabetes mellitus type 2. 6. Hypertension. Blood pressures seem to have fairly good control. 7. Situational anxiety and depression. Continue with present medication. 8. History of cerebrovascular accident x2. 9. History of brain aneurysm and repair in the past. I had stopped her Lovenox because of the gross hematuria. She does not want to take her Rivas catheter out as she is still getting her Lasix. We have cut the Lasix down to 40 mg IV twice a day. Clinically, she seems to be improving. I think we can decrease the prednisone down to 40 mg IV q.8. Continue nicotine patch. cc: Aayush Martinez MD
[2019-09-08] MEDS: ROCEPHIN 1 GM in NS 50 ML IV SCH (17:02)
[2019-09-08] MEDS: TESSALON PO PRN (21:10)
[2019-09-09] MEDS: LABETALOL IV PRN (00:14)
[2019-09-09] MEDS: DUONEB (A & A) INH SCH ×4 (03:45→20:00)
[2019-09-09] MEDS: NORCO-7.5 PO PRN ×5 (04:09→22:11)
[2019-09-09] MEDS: HUMALOG SUBQ SCH ×4 (05:59→21:35)
[2019-09-09] MEDS: SOLU-MEDROL IV SCH ×3 (05:59→22:08)
[2019-09-09] MEDS: NICODERM PATCH TD SCH (09:38)
[2019-09-09] MEDS: MIRALAX PO SCH ×2 (09:38→21:34)
[2019-09-09] MEDS: LASIX IV SCH ×3 (09:39→22:16)
[2019-09-09] MEDS: ZITHROMAX PO SCH (09:39)
[2019-09-09] MEDS: LACTULOSE PO SCH ×3 (09:39→21:34)
[2019-09-09] MEDS: PRILOSEC PO SCH ×2 (09:39→21:33)
[2019-09-09 11:40] LABS: AGAP 13; BUN 29 mg/dL (8-22); CALCIUM 8.9 mg/dL (8.8-10.2); CHLORIDE 92 mmol/L (98-107); COSMO 288; CREATININE 0.9 mg/dL (0.5-0.9); ESTIMATED GFR > 60; GLUCOSE 220 mg/dL (70-104); MAGNESIUM 2.4 mg/dL (1.5-2.7); POTASSIUM 4.6 mmol/L (3.5-5.1); SODIUM 138 mmol/L (136-145); TCO2 33 mmol/L (25-35)
--- NOTE | 2019-09-09 12:14 | Diag Imaging Result Doc PS360 ---
CHEST-1 VIEW - 09/09/2019 INDICATION: pneumonia COMPARISON: 09/05/2019 FINDINGS: There has been significant improvement in the central and bibasilar infiltrates. Heart size remains borderline enlarged. IMPRESSION: Significant improvement from prior. Electronically signed by Tanvir Her 09/09/2019 12:11 PM
--- NOTE | 2019-09-09 12:30 | CARDIOLOGY CONSULTATION ---
DATE: 09/09/2019 CHIEF COMPLAINT ON PRESENTATION: Shortness of breath. HISTORY OF PRESENT ILLNESS: Ms. Simms is a 48-year-old, morbidly obese, black female with a history of cor pulmonale, hypertension, diabetes, COPD. She last presented to my office in July 2019. We did some blood pressure medication adjustments. She continues to have complaints of wheezing, cough that is largely dry. She denies any overt fevers. She has not been compliant with diet. She has fast food sitting on her bedside table. She has not been compliant with her CPAP. She continues to smoke. PAST MEDICAL HISTORY: Significant for 1. Cor pulmonale. She had an echocardiogram that was performed in June 2019. This demonstrated an EF of 60%, moderate TR with an RV systolic pressure of 69. She had a dilated right ventricle with reduced RV systolic function. Her LV chamber size was normal. She had mild left ventricular hypertrophy. 2. Hypertension. 3. Diabetes. 4. COPD. 5. History of CVA and brain aneurysm. 6. Morbid obesity. 7. Obstructive sleep apnea with failure with compliance to CPAP therapy. SOCIAL HISTORY: Patient continues to smoke. No alcohol. FAMILY HISTORY: Significant for diabetes. REVIEW OF SYSTEMS: A 10 system review of systems is negative except for those mentioned in HPI. PHYSICAL EXAMINATION: Vital Signs: She is afebrile. Heart rate 87, blood pressure is 156/96. Her systolics have been quite elevated anywhere from the 140s to 180s. Her I's and O's are negative on the order of 7.2 L for the hospitalization. There was 1 void not measured. General: She is in no acute distress. Morbidly obese. HEENT: Oropharynx is moist. Poor dentition. Eye examination is pink conjunctivae. White sclerae. Neck: Examination shows no obvious thyromegaly or thyroid tenderness. Cardiovascular: She sounds to be in a regular rate and rhythm. Quite distant breath sounds. She has warm and well-perfused extremities. Minimal edema. Chest: Coarse bilateral breath sounds with prominent expiratory wheezes. She has no increased work of breathing. Abdomen: Soft, nontender, nondistended. She has no obvious organomegaly. Skin: Warm and dry throughout. She has no obvious rashes. Neurological: She is moving all extremities well. She has no lateralizing deficits. PERTINENT DATA: She had a chest CT on the that demonstrated low lung volumes, indeterminate bilateral infiltrates and atelectasis. She had an electrocardiogram that was performed on the that demonstrated very low voltage, sinus mechanism, no obvious abnormalities otherwise. Lab data shows no recent CBCs. Her last white count on the was 14, hematocrit 36, platelet count is 310,000. She did have a bandemia. No recent ABG. Basic metabolic panel shows a BMP of 138, potassium 4.6. Her BUN is 29 with a creatinine of 0.9. This is compared to a BUN and creatinine of 14 and 0.8 on the . ProBNP is pending. ASSESSMENT: Ms. Simms is a 48-year-old female who presented with shortness of breath. PLAN: This does not appear to be diastolic or systolic heart failure. This appears more consistent with cor pulmonale and likely chronic obstructive pulmonary disease exacerbation. She has diuresed significantly and her BUN and creatinine are consistent with this diuresis. She continues to have significant elevations in her blood pressure. She had been on losartan at home. I am unclear why this has not been restarted. She was on metoprolol but with her wheezing, she may be better served by being placed on something alternative to this like a calcium channel hermila such as amlodipine. I will restart her losartan at 50 mg daily. I would not recommend repetition of an echo at this point. Her proBNP elevation is consistent with cor pulmonale and her COPD. We will followup on the proBNP that was checked today. Her troponins were unremarkable. We will likely sign off if proBNP is consistent with previous or improved. cc: Parish Naidu MD
[2019-09-09 13:40] LABS: INR 0.99; PROTIME 13.2 Seconds (11.0-16.0)
[2019-09-09 13:41] LABS: PTT 24.9 Seconds (22.3-41.8)
[2019-09-09 13:51] LABS: BILIRUBIN URINE NEGATIVE (NEGATIVE); BLOOD URINE MODERATE (NEGATIVE); COLOR YELLOW; GLUCOSE URINE NEGATIVE (NEGATIVE); KETONE URINE NEGATIVE (NEGATIVE); LEUKOCYTES URINE LARGE (NEGATIVE); NITRITE URINE NEGATIVE (NEGATIVE); PROTEIN URINE 50 mg/dL (NEGATIVE); SP GRAVITY URINE 1.024; TURBIDITY URINE CLEAR (CLEAR); URINE SOURCE CATH; UROBILINOGEN URINE NORMAL (NORMAL)
[2019-09-09 13:53] LABS: UR EPITHELIAL CELLS <10 /HPF (<10); URINE BACTERIA NEGATIVE /HPF; URINE RBC TNTC /HPF (<10)
[2019-09-09 14:02] LABS: BASO# 0.03 X1000 (0.0-0.2); BASO% 0.2 % (0.0-0.8); HEMATOCRIT 41.2 % (37.0-47.0); HEMOGLOBIN 12.3 g/dL (12.0-16.0); IMM GRAN# 0.36 X1000 (0.0-0.04); IMM GRAN% 2.3 % (0.0-0.5); LYMPH# 1.18 X1000 (1.2-3.4); LYMPH% 7.5 % (20.5-51.1); MCH 22.3 PG (27-31); MCHC 29.9 g/dL (33-37); MCV 74.6 FL (81-99); MONO# 0.92 X1000 (0.11-0.59); MONO% 5.9 % (1.7-9.3); MPV 11.2 FL (7.4-10.4); NEUT# 13.14 X1000 (1.4-6.5); NEUT% 84.1 % (42.2-75.2); PLT 426 X1000 (130-400); RBC 5.52 XMIL (4.2-5.4); RDW 15.8 % (11.5-14.5); WBC 15.63 X1000 (4.8-10.8)
[2019-09-09 14:24] LABS: ANISOCYTOSIS 1+; HYPOCHROM 1+; LYMPHS 10 % (21-51); MICROCYTOSIS 1+; MONO 2 % (1-9); SEGS 88 % (42-75)
--- NOTE | 2019-09-09 15:22 | Diag Imaging Result Doc PS360 ---
EXAM: CT ABDOMEN/PELVIS W/O CONTRAST INDICATION: Evaluation of gross hematuria TECHNIQUE: This exam was performed using automated exposure control, adjustment of mA or kV according to patient size, and/or use of iterative reconstruction technique. COMPARISON: None. FINDINGS: There is bibasilar subsegmental atelectasis. There has been a prior cholecystectomy. There is a 1 cm nodule at the surface of the liver anteriorly on image 32 of series 4 that is nonspecific with no IV contrast. The liver is unremarkable, otherwise. The spleen, pancreas, and adrenal glands are unremarkable. There are a couple of punctate nonobstructing intrarenal stones on the right. No ureteral stones are identified and there is no hydronephrosis. The kidneys are unremarkable, otherwise. Due to body habitus, there is excessive streak artifact through the pelvis. The urinary bladder is nondistended and is grossly unremarkable as imaged, otherwise. The reproductive tract is grossly unremarkable as imaged. There are a very few uncomplicated colonic diverticula. The appendix is normal. The remainder of the GI tract is grossly unremarkable as imaged. No focal inflammatory changes, free abdominal gas, or free fluid is appreciated. IMPRESSION: 1.Suggestion of a couple punctate nonobstructing intrarenal stones on the right. No ureteral stones or obstructive uropathy appreciated. 2.Nonspecific 1 cm nodule at the surface of the liver anteriorly. 3.Other incidental/nonacute findings detailed above. Electronically signed by Pradeep Kathleen 09/09/2019 3:20 PM
[2019-09-09] MEDS ORDERED: DULCOLAX PR PRN (15:49)
--- NOTE | 2019-09-09 16:06 | PROGRESS NOTE ---
DATE: 09/09/2019 Ms. Simms still got some gross hematuria. Breathing is still struggling, a lot of wheezing. She is complaining of some chest pain and she has requested that Pulmonary see and ask urology to see her bleeding. We had stopped her Lovenox. I think she has had irritation from her Rivas catheter, still has a significant amount of bronchospasm. Temperature 98.1 degrees, pulse 100 respirations 22, blood pressures have been 139/92, 159/96, 161/106, 170/89. Pupils are equal and round.Lungs: Clear in all lung leong. Cardiovascular: Regular rhythm and rate without murmur or S3. Urine output is [address] of the pelvis and abdomen, suggestion of a couple punctate nonobstructing infrarenal stones on the right. No ureteral stones or obstructive uropathy appreciated, nonspecific 1 cm nodule on surface of liver anterior. Chest x-ray significant improvement from prior. ASSESSMENT AND PLAN: 1. Does not appear to be diastolic or systolic heart failure. Appears more consistent with cor pulmonale and likely chronic obstructive pulmonary disease exacerbation. She does have underlying asthma. She has diuresed significantly with her BUN and creatinine consistent with diuresis. She has had significant elevation the blood pressures, been on losartan at home and so we are going to restart that. She was on metoprolol but with her wheezing so going to try calcium channel hermila such as amiodarone. Appreciate Dr. Naidu cardiology's help. Restart losartan 50 mg a day and do not need to repeat an echocardiogram at this point. ProBNP was consistent with cor pulmonale and her chronic obstructive pulmonary disease. Will follow up on a proBNP. 2. Gross hematuria. I suspect this is from trauma with the catheter. She was on some Lovenox for deep venous thrombosis prophylaxis. Ask urology to evaluate. 3. Questionable pneumonia treating her for pneumonia with Rocephin, azithromycin. 4. Chronic obstructive pulmonary disease exacerbation. 5. Diabetes mellitus type 2, continue to follow sugars, sliding scale. 6. Hypertension. 7. Situational anxiety, depression. Continue current medication. 8. History of cerebrovascular accident x2. 9. History of brain aneurysm past with surgery. So review of her orders she is on Norvasc 5 mg a day, azithromycin 500 mg a day, Tessalon Perles 200 mg p.o. t.i.d. p.r.n., Lasix 40 mg IV twice a day, labetalol 20 mg IV q.4 hours p.r.n., Cozaar 50 mg a day, methylprednisone 40 mg IV q.8 hours, nicotine patch 21 mg daily, Zofran as needed, MiraLAX 17 g p.o. b.i.d., I am going add some lactulose to her regimen, she can have milk of magnesia as well for her constipation. REVIEW OF LABS: Her lab blood counts look good, electrolytes creatinine 0.9, BUN 29. White count was 15,630 but she is on steroids, hematocrit is 41. cc: Aayush Martinez MD
[2019-09-09] MEDS: ROCEPHIN 1 GM in NS 50 ML IV SCH (16:50)
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
[2019-09-09] MEDS: TESSALON PO PRN (22:08)
[2019-09-10] MEDS: DUONEB (A & A) INH SCH ×4 (03:35→19:43)
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
[2019-09-10] MEDS: SOLU-MEDROL IV SCH ×3 (06:41→22:03)
[2019-09-10] MEDS: HUMALOG SUBQ SCH ×4 (06:41→21:50)
[2019-09-10] MEDS: NORCO-7.5 PO PRN ×3 (06:52→21:48)
[2019-09-10 08:51] LABS: AGAP 10; BUN 25 mg/dL (8-22); CALCIUM 9.2 mg/dL (8.8-10.2); CHLORIDE 97 mmol/L (98-107); COSMO 286; CREATININE 0.7 mg/dL (0.5-0.9); ESTIMATED GFR > 60; GLUCOSE 210 mg/dL (70-104); SODIUM 138 mmol/L (136-145); TCO2 31 mmol/L (25-35)
[2019-09-10] MEDS ORDERED: COZAAR PO SCH (09:00)
[2019-09-10] MEDS: LASIX IV SCH ×3 (10:08→21:49)
[2019-09-10] MEDS: NORVASC PO SCH (10:09)
[2019-09-10] MEDS: MIRALAX PO SCH ×2 (10:09→21:50)
[2019-09-10] MEDS: ZITHROMAX PO SCH (10:09)
[2019-09-10] MEDS: LACTULOSE PO SCH ×2 (10:09→22:04)
[2019-09-10] MEDS: NICODERM PATCH TD SCH (10:09)
[2019-09-10] MEDS: PRILOSEC PO SCH ×2 (10:09→21:49)
--- NOTE | 2019-09-10 16:24 | PROGRESS NOTE ---
DATE: 09/10/2019 SUBJECTIVE: Still struggling with wheezing and breathing, but she is a little less tight than before. The urine has cleared. OBJECTIVE: General: She is awake, alert. Vital Signs: Temperature is 98.8 degrees, pulse 100, respirations 14, blood pressure 167/102 HEENT: Pupils are equal and round. Lungs: Clear in all lung leong. Cardiovascular: Regular rhythm rate without murmur or S3. Abdomen: Soft. Skin is warm and dry. Urine output was 1300 mL yesterday and she has had 3000 mL out today. ASSESSMENT/PLAN: Dr. Garrido has assessed her acute on chronic hypoxemic respiratory failure, ongoing tobacco use, nicotine addiction, atypical pneumonia on CT scan, obstructive sleep apnea with noncompliance to CPAP device, morbid obesity, hypoventilation syndrome, and bronchospasm. Continue Symbicort. Consider adding long-acting anticholinergic such as Spiriva. Counseled on smoking cessation and recommend following up with Dr. Salazar to consider a uvulopalatopharyngoplasty. Long-term, she is likely to do well if she is able to lose some weight. We discussed that the urine is clear. Appreciate Dr. Garrido's help. Appreciate Dr. Ram. She was having gross hematuria as well as passage of clots. Unsure whether it has resulted from vaginal versus bladder. Denies any prior bladder surgery. She does have a history of urinary incontinence and describes it as mainly stress induced. Has indwelling Rivas catheter and is draining clear. We stopped her Lovenox. No evidence of clots present. I did a CT scan and recommend cystoscopy and bilateral retrograde pyelograms if does not clear. REVIEW OF ORDERS: She is on Norvasc 5 mg a day, azithromycin 500 mg a day, Tessalon Perles 200 mg p.o. t.i.d. p.r.n., Lasix 40 mg IV b.i.d., and labetalol 20 mg IV q.4 hours p.r.n. elevated blood pressure, lactulose 30 mL b.i.d., methylprednisone 40 mg IV q.8 hours, nicotine patch 21 mg daily, Prilosec 20 mg b.i.d., MiraLAX 17 g p.o. b.i.d., and ceftriaxone 1 g q.24 hours. cc: Aayush Martinez MD
[2019-09-10] MEDS: ROCEPHIN 1 GM in NS 50 ML IV SCH (17:57)
--- NOTE | 2019-09-10 18:26 | CARDIOLOGY PROGRESS NOTE ---
DATE: 09/10/2019 SUBJECTIVE: Ms. Simms continues to complain of shortness of breath, although it seems it has improved somewhat. PHYSICAL EXAMINATION: vital signs: She is afebrile. Heart rate of 108, blood pressure 167/102. General: She is in no acute distress. Cardiovascular: She sounds to be in a regular rate and rhythm, although it is somewhat distant. Chest: Bilateral end-expiratory wheezes. She has no increased work of breathing. Abdomen: Soft, nontender. PERTINENT DATA: Sodium 138, potassium 5, BUN 25, creatinine 0.7. Her proBNP was 52. She has had negative troponins. She has had an ejection fraction in June 2019 of 60%. ASSESSMENT: Ms. Simms is a 48-year-old female who presents with shortness of breath. PLAN: At this point, she does not appear to have an ischemic or heart failure etiology to the symptoms. She is currently being followed by Pulmonary, who at present is continuing with inhalers. There was discussion regarding followup with the sleep center to consider a UPPP. Weight loss is certainly contributing significantly to her current clinical situation. Her blood pressure has been significantly elevated. She is on a dose of amlodipine 5 mg daily that was started this morning for the first dose. She is on losartan 50 mg daily as well. The losartan is a home medication. We added the amlodipine in. I will increase the losartan up to 100 mg. I will order a basic metabolic panel for the morning. Presently, I do not have any acute cardiovascular recommendations. Please contact us if we can be of further assistance with this patient. cc: Parish Naidu MD
--- NOTE | 2019-09-10 19:54 | PULMONOLOGY PROGRESS NOTE ---
DATE: 09/10/2019 SUBJECTIVE: The patient is awake, alert, and conversant. She reports she is short of breath, but she feels better than yesterday. OBJECTIVE: Vital Signs: The patient has been afebrile for the last 24 hours. Blood pressure 158/86, heart rate 89, respiratory rate 16, oxygen saturation 95%. HEENT: Pupils are equal and reactive. Oropharynx appears clear. Neck: Supple. Chest: Reveals wheezing bilaterally with prolonged expiratory phase. She has slightly better air flow than yesterday. Cardiac Exam: S1, S2. Abdomen: Obese and soft. Extremities: Reveal trace edema. LABORATORIES: Sodium 138, potassium 5.0, chloride 97, bicarbonate 31, BUN 25, creatinine 0.7. IMPRESSION: A 48-year-old with: 1. Acute on chronic hypoxemic respiratory failure. 2. Chronic obstructive pulmonary disease exacerbation. 3. Ongoing tobacco use/nicotine addiction. 4. Atypical pneumonia. 5. Obstructive sleep apnea with noncompliance. 6. Morbid obesity. PLAN: 1. Continue current antibiotic regimen. 2. Continue current steroid regimen. She appears to be improving. 3. Consider adding long-acting anticholinergic. 4. Smoking cessation was discussed. She reports she will not start smoking when she leaves. 5. Consider UPPP as an outpatient given her morbid obesity and [id number] blood pressure. cc: Jose Garrido MD
[2019-09-10] MEDS: TESSALON PO PRN (21:48)
[2019-09-10] MEDS: BENADRYL PO SCH (21:49)
[2019-09-11] MEDS: DUONEB (A & A) INH SCH ×4 (03:29→22:17)
[2019-09-11] MEDS: SOLU-MEDROL IV SCH ×3 (06:32→23:08)
[2019-09-11] MEDS: NORCO-7.5 PO PRN ×3 (06:32→21:40)
[2019-09-11] MEDS: HUMALOG SUBQ SCH ×4 (06:33→23:15)
--- NOTE | 2019-09-11 07:38 | PROGRESS NOTE ---
DATE: 09/11/2019 SUBJECTIVE: No acute events overnight. She was made NPO in preparation for surgery today. The patient's catheter is in place draining clear yellow urine. 3.7 L recorded yesterday. She has had 2 bowel movements. She says her shortness of breath seems to be stable. OBJECTIVE: Vital signs: Temperature 98.1 degrees, heart rate 153/95, oxygen 96% on room air. General: No acute distress. Resting in the bed. Alert and oriented x3. Respiratory: Good respiratory effort. The patient has decreased breath sounds at the bases. Genitourinary: Urethral catheter in place draining clear urine. No evidence of CVA tenderness or suprapubic tenderness. Musculoskeletal: Moving all extremities. LABS: Sodium 138, potassium 5.8, chloride 97, bicarb 31, BUN 25, creatinine 0.7, glucose 210. Most recent urinalysis shows mild amount of blood with vkp-[id number]-[id number]-count RBCs and 10 to 20 white blood cell count. Microbiology shows no evidence of any growth. ASSESSMENT AND PLAN: Ms. Simms is a 48-year-old with congestive heart failure, hypertension, type 2 diabetes, depression, anxiety, COPD and cerebrovascular accident x2 with a brain aneurysm who presents in consultation regarding gross hematuria. She states she has been passing clots as well as visible red urine. The patient was previously on anticoagulation and was started on Lovenox here but was held when she began having bleeding. Her catheter is currently in place draining clear yellow urine with no evidence of blood present. In talking with her, I recommended cystoscopy, bilateral retrograde pyelograms. The patient has been on steroids as well as received Benadryl in preparation for use of contrast today. Continue n.p.o. at this time. We will give a diet after her procedure. We will likely place catheter afterwards to be removed at discretion of primary team. I will continue monitoring from urologic standpoint. Please call with questions or concerns. cc: Fady Ram MD MTDJonatan
[2019-09-11 08:51] LABS: AGAP 7; BUN 30 mg/dL (8-22); CALCIUM 8.6 mg/dL (8.8-10.2); CHLORIDE 96 mmol/L (98-107); COSMO 294; CREATININE 0.8 mg/dL (0.5-0.9); ESTIMATED GFR > 60; GLUCOSE 210 mg/dL (70-104); POTASSIUM 5.3 mmol/L (3.5-5.1); SODIUM 141 mmol/L (136-145); TCO2 38 mmol/L (25-35)
[2019-09-11] MEDS: COZAAR PO SCH (09:17)
[2019-09-11] MEDS: BENADRYL PO SCH ×3 (09:18→23:03)
[2019-09-11] MEDS: NORVASC PO SCH (09:18)
[2019-09-11] MEDS: ZITHROMAX PO SCH (09:18)
[2019-09-11] MEDS: NICODERM PATCH TD SCH (09:18)
[2019-09-11] MEDS: LASIX IV SCH ×2 (09:18→21:40)
[2019-09-11] MEDS: LACTULOSE PO SCH ×2 (09:18→23:16)
[2019-09-11] MEDS: PRILOSEC PO SCH ×2 (09:18→21:40)
[2019-09-11] MEDS: MIRALAX PO SCH ×2 (09:19→23:08)
[2019-09-11] MEDS ORDERED: DIPRIVAN 1% ONE ×2 (09:55→11:10)
[2019-09-11] MEDS ORDERED: XYLOCAINE-MPF 2% ONE (09:55)
[2019-09-11] MEDS ORDERED: DECADRON ONE (11:33)
[2019-09-11] MEDS ORDERED: ZOFRAN ONE (11:33)
--- NOTE | 2019-09-11 12:22 | Diag Imaging Result Doc PS360 ---
RETROGRADES 2 OR 3 FILMS - 09/11/2019 INDICATION: HEMATURIA TECHNIQUE: Bilateral ureterograms. The exam was performed by the patient's urologist. Total fluoroscopy time was 16 seconds. 12 images were obtained. COMPARISON: CT from 09/09/2019 FINDINGS: The ureters and renal collecting systems are grossly normal bilaterally. IMPRESSION: Negative exam. Electronically signed by Tanvir Her 09/11/2019 12:20 PM
[2019-09-11] MEDS: ROCEPHIN 1 GM in NS 50 ML IV SCH (16:09)
--- NOTE | 2019-09-11 17:33 | PROGRESS NOTE ---
DATE: 09/11/2019 SUBJECTIVE: Ms. Mendez allen may be breathing a little better by report. She denies more bleeding in the Rivas catheter. They did call me later this afternoon say though they saw some vaginal bleeding and soaked some pads, so this may be vaginal bleeding that is going on. She remains afebrile, temperature 98.6 degrees, pulse 109, respirations 18, blood pressure 146/111. OBJECTIVE: Pupils are equal round. Lungs are clear in all lung leong. Cardiovascular exam regular rate without murmur or S3. Abdomen is soft. Skin is warm and dry. Urine output is 5900 mL. Blood sugars 252, 244, 219, 234. ASSESSMENT/PLAN: A 48-year-old with congestive heart failure, hypertension, diabetes mellitus type 2, depression, anxiety, COPD, cerebrovascular accident x2. The brain aneurysm which has been repaired and she was admitted with respiratory trouble and had some hematuria while Rivas catheter was in . 1. Acute on chronic hypoxemic respiratory failure. 2. Chronic obstructive pulmonary disease exacerbation. 3. Ongoing tobacco use, nicotine addiction, has been counseled on the importance of quitting smoking. 4. Atypical pneumonia. 5. Obstructive sleep apnea, noncompliance. 6. Morbid obesity. 7. Hematuria, which is resolved and suspected was trauma from the Rivas catheter. 8. It looks like she has some vaginal bleeding, so review of her orders, she is getting Tylenol for pain. She is on albuterol ipratropium inhalations 4 times a day. She gets Norvasc 5 mg a day, azithromycin 500 mg p.o. daily, Tessalon Perles 200 mg t.i.d. p.r.n., Lasix 40 mg IV b.i.d., lactulose 30 mL b.i.d. she was complaining of some constipation, Cozaar 100 mg daily, methylprednisone 40 mg IV q.8 hours, nicotine patch 21 mg, Prilosec 20 mg p.o. b.i.d., MiraLAX 17 g b.i.d. She is on ceftriaxone 1 g q.24 hours. REVIEW OF LABS: Her lab sodium 141, potassium 5.3, chloride 96, BUN 30, creatinine 0.8/ blood sugars have been 219, 210, 192, 225 and 234. cc: Aayush Martinez MD
--- NOTE | 2019-09-11 20:27 | OPERATIVE NOTE ---
PROCEDURE DATE: 09/11/2019 PREOPERATIVE DIAGNOSES: Gross hematuria. POSTOPERATIVE DIAGNOSES: 1. Gross hematuria. 2. Bladder mass. PROCEDURE PERFORMED: 1. Cystoscopy with bilateral retrograde pyelograms. 2. Bladder biopsies and fulguration of bleeding. SURGEON: Fady Ram MD. TICKER WIRER: None. COMPLICATIONS: None. BLOOD LOSS: 5 mL. DRAINS: 18-Marshallese Rivas catheter. SPECIMENS REMOVED: Bladder biopsies from 2 locations. ANESTHESIA: LMA. INDICATION FOR PROCEDURE: Ms. Simms is a 48-year-old who presented in evaluation for gross hematuria. She has had indwelling catheters several times over the past several days and was having blood in her catheter. She also is having blood per her vagina. Difficult to examine her due to her anatomy and discomfort. We recommended anesthetic cystoscopy with bilateral retrograde pyelograms to assess for etiologies of her gross hematuria. The patient has COPD, type 2 diabetes, depression, anxiety, cerebrovascular accident and brain aneurysm. After thorough discussion of risks, benefits and alternatives of procedure, she elected to proceed. OPERATIVE FINDINGS: The patient had normal pelvic anatomy with no obvious lesions present. The patient had a grade 1 cystocele, normal urethra and no palpable urethral masses. Cystoscopically, her urethra appears to be normal with no lesions seen. Once inside the bladder, the entirety of the bladder was inspected. A large amount of bullous changes were seen in the posterior wall of the bladder as well as around bilateral ureteral orifices, and this is related to indwelling catheter; however, the right side of the bladder appeared to be more abnormal. Bilateral retrograde pyelograms were performed, which showed a normal collecting system. No evidence of obstruction or filling defects. Multiple bladder biopsies were then performed both on the right lateral wall, as well as the posterior wall of the bladder. A small amount of bleeding was seen. This was treated with fulguration and good hemostasis was seen after cycling the bladder multiple times. Thorough pelvic exam was performed with no obvious blood seen within the vaginal fold, and good support of the apex was seen with no obvious rectocele or palpable masses. The patient underwent uneventful placement of urethral catheter with return of clear yellow urine. DESCRIPTION OF PROCEDURE: After informed consent was obtained, the patient was brought to the operating room and placed on the table in supine position. The patient received preoperative antibiotics and underwent LMA placement. She was positioned to a dorsal lithotomy position, was prepped and draped in usual sterile fashion. A preoperative time-out was then performed with all parties in agreement, including anesthesia, surgical, nursing staff, at which point a 21-Marshallese cystourethroscope was inserted through the urethra into the bladder. Patient had a normal urethra, no stricture disease or papillary lesions. Once inside the bladder, the entirety of the bladder was inspected with 70 and 30 degree lens. There was significant bullous edema seen on the right lateral wall, as well as posterior wall. No obvious papillary masses were visualized in the bladder. No other areas of erythema were seen. Both ureteral orifices were small and present at the base of the bladder. The open-ended catheter was then passed through the scope, flushed of all bubbles, and the right ureteral orifice was cannulized, and retrograde pyelograms were performed, which showed no evidence of hydronephrosis, filling defects, and had a delicate collecting system which drained efficiently on postdrainage films. Once this was completed, attention was then placed to the left side, and a similar procedure was performed, which outlined normal collecting system and ureter with no evidence of hydroureter or hydronephrosis. Good drainage was seen on postdrainage films. Once this was performed, the patient's bladder was cycled multiple times and rigid biopsy forceps were passed through the scope, and multiple biopsies were taken of the right lateral wall and posterior wall. These were sent separately for pathology evaluation. Then, using sterile water and electrocautery with the Bugbee electrode, hemostasis was then obtained. A small amount of bleeding was seen from the right lateral wall, which was easily cauterized. The patient's bladder was cycled multiple times, and no significant bleeding seen. The patient's bladder was left full, and an 18-Marshallese Rivas catheter inserted through the urethra and inflated 10 mL sterile water placed to gravity drainage at which point a thorough pelvic exam was performed which showed no obvious pelvic masses. No evidence of any blood seen within the vaginal vault. Good support of the apex was seen. A grade 1 cystocele was able to be visualized. No palpable urethral masses or rectal masses seen. At which point patient was then awoken and was taken to recovery in stable condition. The patient will be admitted back to the floor. She will keep her indwelling catheter in for several days and can be removed prior to discharge. cc: Fady Ram MD MTDD
[2019-09-11] MEDS: TESSALON PO PRN (21:40)
--- NOTE | 2019-09-11 21:54 | Diag Imaging Result Doc PS360 ---
EXAM: US TRANSVAGINAL NON-OB 09/11/2019 HISTORY: Post-menopausal bleeding TECHNIQUE: Endovaginal scan COMMENT: The uterus measures 8.4 x 3 cm with an 11 mm endometrial stripe at the fundus. Neither ovary is identifiable. There is no evidence of free fluid. There is a small nabothian cyst. IMPRESSION: Limited study. No definite acute abnormality. Electronically signed by Adebayo Mcmahon 09/11/2019 9:51 PM
--- NOTE | 2019-09-11 23:51 | CONSULTATION ---
DATE OF CONSULTATION: 09/11/2019 CONSULT SERVICE: Gynecology. REASON FOR CONSULT: Vaginal bleeding. HISTORY OF PRESENT ILLNESS: A 48-year-old G3, P3-0-0-3 with a complaint of abnormal uterine bleeding. She was admitted on 09/05 with shortness of breath and is currently being treated for pneumonia. She has a medical history that has been complicated by COPD, congestive heart failure, hypertension, type 2 diabetes, morbid obesity and history of brain aneurysm x2. Upon arrival, she complained of blood in her urine and Urology was consulted. They performed a cystoscopy and bladder biopsy on 09/11. On 09/11 she did complain of heavy vaginal bleeding, and Gynecology was subsequently consulted. She states that bleeding started today. She states her last menstrual period was approximately 2 years ago, and she believed herself to be menopausal. She was started on a blood thinner in 2016 after a brain aneurysm, and she states that on occasion when she gave herself Lovenox shots she would experience vaginal bleeding, but she has not noticed a menstrual cycle for approximately 2 years. She also complains of hot flashes and night sweats. She has not seen an HEDIS COORDINATOR in approximately 8 years. She is unsure when her last Pap smear was, but states it was "a long time ago." She denies any history of abnormal Pap smears. She currently has a catheter in place, with a small amount of blood noted in the Rivas bag. She did have a bladder biopsy this morning. Cardiology, Pulmonology and Urology have also been consulted during this hospital stay. GYNECOLOGICAL HISTORY: She is not currently sexually active. She does state she has a history of genital warts that have been removed. She denies any history of abnormal Pap smears. She denies any history of gonorrhea, chlamydia, trichomonas, herpes, hepatitis or HIV. Her last menstrual period was approximately 2 years ago. OBSTETRICAL HISTORY: G3, P3-0-0-3. She has had 3 term spontaneous vaginal deliveries. She denies any complications with those pregnancies. PAST MEDICAL HISTORY: Morbid obesity, COPD, hypertension, congestive heart failure, poorly controlled type 2 diabetes, history of brain aneurysm x2. MEDICATIONS: See medication reconciliation. ALLERGIES: IV contrast. PAST SURGICAL HISTORY: She has had stents placed after her brain aneurysm, she has had a hernia repair, laparoscopic cholecystectomy. SOCIAL HISTORY: She smokes approximately 1 cigarette a day, and she decreased her smoking in May after she was hospitalized for COPD exacerbation. She has previously smoked approximately 1 pack per day for 40 years. FAMILY HISTORY: Denies. PHYSICAL EXAMINATION: Vital signs: Temperature 98.6 degrees, blood pressure 146/111, pulse 95, oxygen saturation 92% on 2 L O2. On physical exam, alert, in no acute distress. Morbidly obese. Lungs: Bilateral expiratory wheeze. No respiratory distress.Cardiovascular: Regular rate and rhythm. No murmurs. Abdomen soft, obese, nontender. On sterile speculum exam, approximately 5 mL of dark red blood in the vaginal vault. No active bleeding coming from the cervix at the time of the exam. Cervix without lesion, nontender. Uterus mobile; however, exam was severely limited by body habitus. Extremities: Bilateral lower extremity edema. LABORATORY DATA: White blood cell count 15.6, hemoglobin 12.3, hematocrit 41.2, platelets 426,000. Creatinine 0.8. Lactate 1.7. Urinalysis: Protein 50, moderate blood, large leukocyte esterase, less than 10 epithelials, 10-20 white blood cells. DIAGNOSTIC DATA: CT abdomen and pelvis showed a grossly unremarkable reproductive tract. She had a retrograde pyelogram that was normal. ASSESSMENT AND PLAN: A 48-year-old 3, para 3-0-0-3 with abnormal uterine bleeding, morbid obesity, pneumonia with chronic obstructive pulmonary disease, hypertension, congestive heart failure, poorly controlled type 2 diabetes, and history of aneurysm x2. 1. Hemodynamically stable and afebrile. Vaginal bleeding not heavy at this time. 2. We will order a transvaginal ultrasound to assess uterus and endometrium. 3. We will order TSH and urine test, gonorrhea and chlamydia. 4. Recommend outpatient Pap smear and endometrial biopsy. 5. We will consider a course of Provera if bleeding persists or becomes heavier. [facility]
[2019-09-12] MEDS: DUONEB (A & A) INH SCH ×4 (04:05→20:10)
[2019-09-12] MEDS: NORCO-7.5 PO PRN ×3 (05:53→22:28)
[2019-09-12] MEDS: SOLU-MEDROL IV SCH ×3 (06:18→23:17)
[2019-09-12] MEDS: HUMALOG SUBQ SCH ×4 (06:36→22:31)
--- NOTE | 2019-09-12 07:17 | PROGRESS NOTE ---
DATE: 09/12/2019 SUBJECTIVE: Postoperative day 1 from cystoscopy, bilateral retrograde pyelograms, bladder biopsies and fulguration of bleeding. The patient has done well overnight. Her catheter is draining clear yellow urine. She denies any dysuria or clot passage. She overall feels like her breathing is improved. She was seen by MARINE PROPULSION TECHNICIAN yesterday regarding her vaginal bleeding and had a pelvic ultrasound performed which was reported as relatively normal. The patient denies any fevers or chills. OBJECTIVE: Vital signs: Temperature 97.9 degrees, heart rate 93, blood pressure 142/96, oxygen saturation 96% on room air. General: No acute distress. Lying comfortably in bed. Alert and oriented x3. Respiratory: Good respiratory effort. Abdomen: Soft, nontender, nondistended. Genitourinary: No suprapubic tenderness. No CVA tenderness. Urethral catheter in place draining clear yellow urine. No evidence of any clots. LABORATORY DATA: Morning labs have not returned yet. IMAGING: The patient had a pelvic ultrasound performed yesterday which showed her uterus that measured 8.4 x 3 cm with 11 mm endometrial stripe with no identifiable ovaries and a small nabothian cyst. ASSESSMENT AND PLAN: Ms. Simms is a 48-year-old with history of chronic obstructive pulmonary disease, congestive heart failure, hypertension, type 2 diabetes, depression, anxiety, and cerebrovascular accident, who presented in consultation regarding gross hematuria. She was taken to the operating room yesterday for a cystoscopy, bilateral retrograde pyelograms and bladder biopsy with fulguration of bleeding. The patient had catheter reinserted and overall has been doing well. Her urine is draining clear yellow urine with no evidence of any clots. She was seen by MARINE PROPULSION TECHNICIAN yesterday regarding vaginal bleeding and had a relatively negative workup will but will follow up outpatient with them. From a Urology standpoint, we will keep indwelling catheter in for at least 1 more day. This could be removed tomorrow at the discretion of the primary team. We will have her follow up in the office for review of pathology from bladder biopsies. cc: MD DAYAMI Watson
[2019-09-12] MEDS ORDERED: PROVERA PO ONE (08:09)
--- NOTE | 2019-09-12 08:09 | PROVIDER PROGRESS NOTE ---
- Subjective Pt is a 48-year-old who c/o postmenopausal bleeding since [facility] [place] [facility]D [place]. Pt reports mild bleeding today. Denies passage of blood clots or heavy menstrual bleeding today Physical Exam Objective Vital Signs - 8 hr 09/12/19 00:21 09/12/19 04:00 09/12/19 07:31 Temperature 97.7 F 97.9 F 97.9 F Pulse Rate 100 H 93 H 86 Respiratory Rate 20 Blood Pressure 107/79 142/96 151/99 O2 Sat by Pulse Oximetry 97 96 96 - Constitutional General Appearance: appears well, alert, no apparent distress, obese - RESPIRATORY Respiratory: lungs clear - CARDIOVASCULAR Cardiovascular: regular rate, rhythm - GASTROINTESTINAL (ABDOMEN) Abdominal Exam: non tender, soft - GENITOURINARY Female Genitalia/Pelvic Exam: active bleeding (dark blood noted on peripad) - MUSCULOSKELETAL Extremity: non-tender, no pedal edema, no calf tenderness - PSYCHIATRIC Psych/Mental Status: normal mood/affect, oriented x 3 Active Medications Generic Name Dose Route Start Last Admin Trade Name Freq PRN Reason Stop Dose Admin Acetaminophen 650 mg 09/05/19 19:20 Tylenol PO Q6H PRN PRN Fever or Pain Hydrocodone Bitart/Acetaminophen 0 each 09/05/19 19:20 09/12/19 05:53 Buhler-7.5 PO 2 each Q6H PRN Administration Pain 4-6 on pain scale Albuterol/Ipratropium 3 ml 09/05/19 21:00 09/12/19 07:59 Duoneb (A & A) INH 3 ml [id number] RAUL Administration Amlodipine Besylate 5 mg 09/10/19 09:00 09/11/19 09:18 Norvasc PO 5 mg DAILY RAUL Administration Azithromycin 500 mg 09/06/19 09:00 09/11/19 09:18 Zithromax PO 500 mg DAILY RAUL Administration Benzonatate 200 mg 09/06/19 14:17 09/11/19 21:40 Tessalon PO 200 mg TID PRN PRN Administration Cough Bisacodyl 10 mg 09/09/19 15:49 Dulcolax TN DAILY PRN PRN CONSTIPATION Diphenhydramine HCl 50 mg 09/10/19 21:00 09/11/19 23:03 Benadryl PO 50 mg 0900,1500,2100 RAUL Administration Furosemide 40 mg 09/05/19 21:00 09/11/19 21:40 Lasix IV 40 mg BID RAUL Administration Guaifenesin 10 ml 09/06/19 14:41 09/08/19 21:12 Robitussin-Dm PO 10 ml Q4H PRN PRN Administration Cough Ceftriaxone Sodium 1 gm/ 50 mls @ 100 mls/hr 09/06/19 17:00 09/11/19 16:09 Sodium Chloride IV 100 mls/hr Q24H RAUL Administration Insulin Human Lispro 0 units 09/05/19 21:00 09/12/19 06:36 Humalog SUBQ 4 units 0700,1100,1600,2100 [facility] Administration Protocol Labetalol HCl 20 mg 09/05/19 19:40 09/09/19 00:14 Labetalol IV 20 mg Q4H PRN PRN Administration Blood Pressure Lactulose 30 ml 09/07/19 14:45 09/11/19 23:16 Lactulose PO 30 ml BID [facility] Administration Losartan Potassium 100 mg 09/11/19 09:00 09/11/19 09:17 Cozaar PO 100 mg DAILY [facility] Administration Magnesium Hydroxide 30 ml 09/07/19 14:43 Milk Of Magnesia PO DAILY PRN PRN CONSTIPATION Methylprednisolone Sodium Succinate 40 mg 09/08/19 23:00 09/12/19 06:18 Solu-Medrol IV 40 mg Q8H [facility] Administration Nicotine 21 mg 09/05/19 19:30 09/11/19 09:18 Nicoderm Patch TD 21 mg DAILY [facility] Administration Omeprazole 20 mg 09/05/19 21:00 09/11/19 21:40 Prilosec PO 20 mg BID [facility] Administration Ondansetron HCl 4 mg 09/05/19 19:20 Zofran IV Q4H PRN PRN Nausea And Vomiting Oxybenzone/Padimate O/Dimethicone 1 gm 09/07/19 00:20 09/07/19 00:35 Blistex Medicated Padilla Lip Ramseur TOP 1 applic PRN PRN Administration Dry Lips Polyethylene Glycol 17 gm 09/07/19 21:00 09/11/19 23:08 Miralax PO Not Given BID [facility] Laboratory Results - last 24 hr 09/11/19 09/11/19 09/11/19 08:12 08:12 10:21 Sodium 141 Potassium 5.3 H Chloride 96 L Carbon Dioxide 38 H Anion Gap 7 BUN 30 H Creatinine 0.8 Estimated GFR/1.73 m2 > 60 BUN/Creatinine Ratio 38 Glucose 210 H POC Glucose 192 H Calculated Osmolality 294 Calcium 8.6 L TSH 1.92 09/11/19 09/11/19 09/11/19 12:44 15:29 21:22 Sodium Potassium Chloride Carbon Dioxide Anion Gap BUN Creatinine Estimated GFR/1.73 m2 BUN/Creatinine Ratio Glucose POC Glucose 225 H 234 H 285 H Calculated Osmolality Calcium TSH 09/12/19 05:45 Sodium Potassium Chloride Carbon Dioxide Anion Gap BUN Creatinine Estimated GFR/1.73 m2 BUN/Creatinine Ratio Glucose POC Glucose 249 H Calculated Osmolality Calcium TSH Microbiology 09/09/19 13:00 Urine Culture - Final Urine,Clean Catch NO GROWTH 09/05/19 19:41 Blood Culture - Final Blood NO GROWTH AFTER 5 DAYS 09/05/19 19:39 Blood Culture - Final Blood NO GROWTH AFTER 5 DAYS 09/09/19 13:08 Blood Culture - Preliminary Blood NO GROWTH AFTER 48 HOURS 09/09/19 13:02 Blood Culture - Preliminary Blood NO GROWTH AFTER 48 HOURS - Assessment & Plan (1) DUB (dysfunctional uterine bleeding) Status: Acute Plan: A 48-year-old 3, para 3-0-0-3 with possible postmenopausal bleeding, morbid obesity, pneumonia with chronic obstructive pulmonary disease, hypertension, congestive heart failure, poorly controlled type 2 diabetes, and history of aneurysm x2. 1. Hemodynamically stable and afebrile. Vaginal bleeding not heavy at this time. 2. Transvaginal ultrasound showed normal sized uterus and endometrium thickness. 3. TSH wnl 4. Discussed with pt likely bleeding due to anovulation. Will check FSH/Estradiol levels to confirm postmenopausal state 5. Recommend outpatient Pap smear and endometrial biopsy. 6. Okay to start Provera 10 mg daily to help resolve bleeding.
[2019-09-12] MEDS: BENADRYL PO SCH ×3 (09:10→22:29)
[2019-09-12] MEDS: MIRALAX PO SCH (09:10)
[2019-09-12] MEDS: LACTULOSE PO SCH (09:10)
[2019-09-12] MEDS: LASIX IV SCH ×2 (09:10→23:17)
[2019-09-12] MEDS: COZAAR PO SCH (09:10)
[2019-09-12] MEDS: NORVASC PO SCH (09:10)
[2019-09-12] MEDS: NICODERM PATCH TD SCH (09:10)
[2019-09-12] MEDS: PRILOSEC PO SCH ×2 (09:10→22:29)
[2019-09-12] MEDS: ZITHROMAX PO SCH (09:10)
[2019-09-12 15:36] LABS: ESTRADIOL SEE COMMENTS
--- NOTE | 2019-09-12 16:47 | PROGRESS NOTE ---
DATE: 09/12/2019 Ms. Simms is still frustrated. Her breathing does not seem to be good. She seems to have less wheezing. She has diminished swelling in her lower extremities. She remains afebrile, temperature 98 degrees, pulse 100 respirations 20, blood pressure 131/85. Pupils are equal and round. Lungs are clear in all lung leong. Cardiovascular exam, regular rhythm and rate without murmur or S3. Urine output was over 4 L. The urine from the catheter is clear yellow. ASSESSMENT AND PLAN: 1. Hemodynamically stable. Vaginal bleeding not heavy at this time. Transvaginal ultrasound showed a normal-sized uterus and endometrium thickness. TSH was within normal limits. Likely bleeding is due to anovulation, so they are going to check FSH and estradiol to confirm post menopausal state. Recommend outpatient Pap smear, endometrial biopsy and going to start on Provera 10 mg a day to help resolve bleeding. Appreciate Dr. Swanson' help. 2. Gross hematuria, which is better. Urine is clear. Rivas catheter in place. 3. Obstructive pulmonary disease with bronchospasm, acute on chronic hypoxemic respiratory failure, ongoing tobacco use, atypical pneumonia on CT scan with morbid obesity. Continue present measures. Try and increase her activity. Would like to get her Rivas catheter out soon. cc: Aayush Martinez MD
[2019-09-12] MEDS: ROCEPHIN 1 GM in NS 50 ML IV SCH (16:48)
[2019-09-12] MEDS: TESSALON PO PRN (22:29)
[2019-09-13] MEDS: LACTULOSE PO SCH ×3 (01:09→22:00)
--- NOTE | 2019-09-13 01:15 | PULMONOLOGY PROGRESS NOTE ---
DATE: 09/12/2019 SUBJECTIVE: The patient is awake, alert, and conversant. Her breathing has improved. She does get dyspneic with walking to the bathroom. OBJECTIVE: Vital Signs: The patient has been afebrile for the last 24 hours. Blood pressure 131/85, heart rate 100, respiratory rate 20, oxygen saturation 98% on 2 L per nasal cannula. HEENT: Pupils are equal and reactive. Oropharynx appears clear. Neck: Supple. Chest: Reveals prolonged expiratory phase. Wheezing has essentially resolved. Cardiac: Distant heart sounds. Normal S1, normal S2. Abdomen: Obese and soft. Genitourinary: Rivas catheter is draining clear yellow urine. LABORATORIES: No new chemistries or CBC. IMPRESSION: A 48-year-old with: 1. Acute on chronic hypoxemic respiratory failure. 2. Chronic obstructive pulmonary disease exacerbation. 3. Obstructive sleep apnea with noncompliance. 4. Atypical pneumonia. 5. Morbid obesity. DISCUSSION: A 48-year-old with problems outlined above. Her pulmonary status continues to improve. Her lung leong now are essentially clear. Long-term, it is of paramount importance that she stop smoking and lose weight. She is aware that these are both difficult tasks, but if she is to survive long-term both must be accomplished. RECOMMENDATIONS: 1. Consider transition to oral prednisone. 2. Discontinue azithromycin at the time of discharge. 3. Encourage smoking cessation. 4. Encourage weight loss. 5. From a pulmonary standpoint, she could be discharged home soon. cc: Jose Garrido MD
[2019-09-13] MEDS: DUONEB (A & A) INH SCH ×4 (03:30→22:05)
[2019-09-13] MEDS: MIRALAX PO SCH ×3 (03:57→21:59)
--- NOTE | 2019-09-13 07:00 | PROGRESS NOTE ---
DATE: 09/13/2019 SUBJECTIVE: No acute events overnight. The patient states her catheter has been draining well. Denies any clot passage. Denies any flank or abdominal pain. Denies any fevers or chills. OBJECTIVE: Vital signs: Temperature 97.7 degrees, heart rate 94, blood pressure 136/88, oxygenation 97% on nasal cannula. General: No acute distress. Resting comfortably in bed. Alert and oriented x3. Respiratory: Good respiratory effort without audible wheezing or rales. Abdomen: Soft, nontender, obesity present. Genitourinary: No suprapubic tenderness. No CVA tenderness. Urethral catheter in place draining clear yellow urine. ASSESSMENT AND PLAN: Ms Simms is a 48-year-old who presented for evaluation of gross hematuria. She was taken the operating room on 09/11/2019, underwent cystoscopy with bilateral retrograde pyelograms and bladder biopsies. The patient has done well since then. The urine is clear yellow with no evidence of any clots, [id number] recorded though the catheter yesterday. We will plan to remove her catheter this morning. We will follow voiding to ensure she is emptying adequately. No evidence of any blood within the catheter itself. She has been evaluated for vaginal bleeding by FISHERIES SPECIALIST. We will plan for outpatient followup regarding review of her bladder biopsies. cc: Fady Ram MD MTDD
[2019-09-13] MEDS: NORCO-7.5 PO PRN ×3 (07:46→22:01)
[2019-09-13] MEDS: HUMALOG SUBQ SCH ×4 (07:46→22:03)
[2019-09-13] MEDS: SOLU-MEDROL IV SCH ×3 (07:46→22:01)
[2019-09-13] MEDS: BENADRYL PO SCH ×3 (08:47→21:59)
[2019-09-13] MEDS: NORVASC PO SCH (08:47)
[2019-09-13] MEDS: COZAAR PO SCH (08:47)
[2019-09-13] MEDS: ZITHROMAX PO SCH (08:47)
[2019-09-13] MEDS: PRILOSEC PO SCH ×2 (08:48→22:00)
[2019-09-13] MEDS: LASIX IV SCH ×2 (08:48→22:00)
[2019-09-13] MEDS: NICODERM PATCH TD SCH (08:48)
[2019-09-13] MEDS: PROVERA PO SCH (08:49)
--- NOTE | 2019-09-13 12:58 | PROGRESS NOTE ---
DATE: 09/13/2019 SUBJECTIVE: Ms. Simms is breathing better. She says she feels better. The swelling seems to have gone down in her legs. A Rivas catheter is out. Remains afebrile. OBJECTIVE: Vital Signs: Temperature 97.9 degrees, pulse 100, respirations 20. HEENT: Pupils are equal and round. Lungs: Clear in all lung leong. Cardiovascular exam: Regular rhythm and rate without murmur or S3. Abdomen: Abdomen is soft. Extremities: No pedal edema. Urine output about 6.5 L. Blood sugars 184, 288, 227. ASSESSMENT AND PLAN: 1. Presented with gross hematuria with Rivas catheter in. Was taken to the operating room on 09/11/2019, underwent cystoscopy and bilateral retrograde pyelograms, bladder biopsies. The patient has done well. Urine is clear. No evidence of clots. Good urine output. 2. Acute on chronic hypoxemic respiratory failure, chronic obstructive pulmonary disease exacerbation, obstructive pulmonary disease with noncompliance, atypical pneumonia, morbid obesity. She seems to be improving. We will discontinue the azithromycin at time of discharge. Encourage smoking cessation and transition her to oral prednisone. Encourage weight loss. cc: Aayush Martinez MD
[2019-09-13] MEDS: ROCEPHIN 1 GM in NS 50 ML IV SCH (17:30)
--- NOTE | 2019-09-13 20:14 | PULMONOLOGY PROGRESS NOTE ---
DATE: 09/13/2019 SUBJECTIVE: The patient is awake and alert. She is talking to visitors. She feels that her breathing has improved. She continues to get dyspneic walking to the bathroom, although she feels this may have improved somewhat. OBJECTIVE: Vital signs: Blood pressure is 140/90 with a heart rate of 90, respirations 18, temperature is 97.9 degrees oral, O2 saturations are 94% to 96%n 2 L nasal cannula. Eyes: Pupils are equal, round, react to light. EOMs are intact. Sclerae are anicteric. HEENT: Head is normocephalic, atraumatic. Mucous membranes are moist. Neck: Supple with trachea midline. Cardiovascular: Regular rate and rhythm. S1 and S2 are appreciated. Heart sounds are distant. She has bilateral lower extremity edema. Calves are nontender bilateral. Pulmonary: Breath sounds are diminished throughout. Chest rises and falls symmetrically with respiration. Chest wall is nontender to palpation. She does have a prolonged expiratory phase. Genitourinary: Rivas is patent with clear yellow urine draining. Neurologic: She is alert oriented x3. LABORATORY DATA: Blood sugars are ranging from 154 to 288. IMPRESSION: This is a 48-year-old female with: 1. Acute on chronic hypoxemic respiratory failure. 2. Chronic obstructive pulmonary disease exacerbation. 3. Obstructive sleep apnea with noncompliance with CPAP. 4. Atypical pneumonia. 5. Morbid obesity with BMI >66 6. Nicotine addiction RECOMMENDATIONS: 1. Encourage weight loss. 2. Encourage smoking cessation. 3. We recommend transitioning the patient over to oral steroids. 4. Discontinue azithromycin at time of discharge. Dictated by RUSSEL Cordova for Jose Garrido MD cc: RUSSEL Cordova MD [facility]
[2019-09-13] MEDS: TESSALON PO PRN (22:08)
[2019-09-14] MEDS: DUONEB (A & A) INH SCH ×4 (03:29→20:18)
[2019-09-14] MEDS: SOLU-MEDROL IV SCH ×3 (06:47→22:00)
[2019-09-14] MEDS: HUMALOG SUBQ SCH ×4 (06:47→21:41)
[2019-09-14] MEDS: NORCO-7.5 PO PRN ×3 (06:59→21:40)
--- NOTE | 2019-09-14 08:33 | OB/GYN PROGRESS NOTE ---
Progress Note ESOL INSTRUCTOR - . Patient Problems: Current Active Problems Problem Status Onset Respiratory distress, acute Acute Pulmonary edema Acute Pneumonia Acute DUB (dysfunctional uterine bleeding) Acute ESOL INSTRUCTOR Progress Note: Vital Signs - 24 hr 09/13/19 09:00 09/13/19 12:00 09/13/19 15:40 Temperature 98.0 F Pulse Rate 103 H 85 Respiratory Rate 20 19 Blood Pressure 129/77 O2 Sat by Pulse Oximetry 95 93 L 91 L 09/13/19 16:00 09/13/19 20:00 09/13/19 22:05 Temperature 98.1 F 98.3 F Pulse Rate 87 114 H 104 H Respiratory Rate 18 18 20 Blood Pressure 125/81 147/97 O2 Sat by Pulse Oximetry 93 L 97 97 09/14/19 04:00 09/14/19 07:59 Temperature 97.8 F 98.4 F Pulse Rate 88 101 H Respiratory Rate 20 18 Blood Pressure 136/90 150/93 O2 Sat by Pulse Oximetry 96 97 Laboratory Results - last 24 hr 09/11/19 09/13/19 09/13/19 04:46 10:34 16:46 POC Glucose 227 H 203 H Ur Chlamydia/GC DNA SEE COMMENTS 09/13/19 20:13 POC Glucose 261 H Ur Chlamydia/GC DNA ESOL INSTRUCTOR HD 9 Pneumonia, hematuria, DUB afebrile, sl tachy 101, last bp 150/93 resting comfortably Hgb 12+ otherlabs as above A hd9 Pneumonia: improved changing to oral steroids Hematuria: s/p cysto and bx DUB: US nl, FSH/E2 indicate perimenopause, most likely cause anovulation, bleeding improved on provera, continue provera after d/c, veronika w/ Dr. Riggs for embx in office post d/c sign off from care, please call if any further questions/needs.
[2019-09-14] MEDS: BENADRYL PO SCH ×3 (09:22→21:40)
[2019-09-14] MEDS: NICODERM PATCH TD SCH (09:22)
[2019-09-14] MEDS: PRILOSEC PO SCH ×2 (09:23→21:40)
[2019-09-14] MEDS: PROVERA PO SCH (09:23)
[2019-09-14] MEDS: MIRALAX PO SCH ×2 (09:25→21:40)
[2019-09-14] MEDS: COZAAR PO SCH (09:25)
[2019-09-14] MEDS: LASIX IV SCH ×2 (09:25→21:41)
[2019-09-14] MEDS: ZITHROMAX PO SCH (09:25)
[2019-09-14] MEDS: NORVASC PO SCH (09:25)
[2019-09-14] MEDS: LACTULOSE PO SCH ×2 (09:26→21:40)
--- NOTE | 2019-09-14 10:11 | PROGRESS NOTE ---
DATE: 09/14/2019 SUBJECTIVE: Ms. Simms was admitted on 09/05/2019. She finally is feeling a little better, moving air better, breathing a little more comfortable. She complained she cannot sleep much at night. Appreciate BOIL OFF MACHINE OPERATOR CLOTH evaluation. Appears that her FSH and estradiol indicate premenopause and likely causes anovulation. Bleeding is improved on Provera. Ultrasound was normal. ASSESSMENT AND PLAN: 1. Grwtt-nz-[id number] hypoxemic respiratory failure. 2. Chronic obstructive pulmonary disease exacerbation. 3. Obstructive sleep apnea, noncompliance to her positive airway CPAP. 4. Atypical pneumonia. 5. Morbid obesity. Her Rivas catheter is out. I have encouraged her to get up and move around and we have discussed the plan of low carbohydrate diet. Looking over her orders, I do not see any changes. Her recent lab, blood sugars 288, 227, 203, and 261. cc: Aayush Martinez MD
[2019-09-14] MEDS: ROCEPHIN 1 GM in NS 50 ML IV SCH (17:14)
--- NOTE | 2019-09-14 17:26 | PULMONOLOGY PROGRESS NOTE ---
DATE: 09/14/2019 SUBJECTIVE: Ms Simms states that she is feeling better. She feels her breathing is improved. She has less dyspnea walking to the bathroom. She states she is still having some vaginal bleeding, Dr. Swanson' following. OBJECTIVE: Vital Signs: Blood pressure is 150/90 with heart rate of 100, respirations 18, temperature 98.4 degrees oral with O2 saturations are 95 to 96 percent on room air. HEENT: Pupils are equal, round, react to light. EOMs are intact. Sclerae anicteric. Head is normocephalic, atraumatic. Mucous membranes are moist. Neck: Supple with trachea midline. Cardiovascular: Regular rate and rhythm. S1, S2 appreciated. Heart sounds are distant. She does have bilateral lower extremity edema. Calves are nontender bilateral. Pulmonary: Breath sounds are diminished throughout. Chest rises and falls symmetric respiration. She has no increased work of breathing noted. Neurologic: She is alert, oriented x3. LABS: Blood sugars are ranging 170 to 390. IMPRESSION: This is a 48-year-old female with 1. Acute on chronic hypoxemic respiratory failure. SAO2 95 -96 on room air. 2. Chronic obstructive pulmonary disease exacerbation. 3. Obstructive sleep apnea with noncompliance. 4. Atypical pneumonia. 5. Morbid obesity. RECOMMENDATIONS: 1. Continue current regimen. 2. Encourage weight loss. 3. Encourage smoking cessation. 4. Recommend discontinue azithromycin at the time of discharge. Dictated by RUSSEL Cordova for Jose Garrido MD cc: RUSSEL Cordova MD [facility]
[2019-09-14] MEDS: MELATONIN PO SCH (21:40)
[2019-09-14] MEDS: TESSALON PO PRN (21:40)
[2019-09-15] MEDS: DUONEB (A & A) INH SCH ×4 (03:29→20:04)
[2019-09-15] MEDS: SOLU-MEDROL IV SCH ×3 (06:07→22:04)
[2019-09-15] MEDS: HUMALOG SUBQ SCH ×4 (06:22→21:11)
[2019-09-15] MEDS: NORCO-7.5 PO PRN ×3 (06:23→21:11)
--- NOTE | 2019-09-15 08:24 | PROGRESS NOTE ---
DATE: 09/15/2019 SUBJECTIVE: Ms. Simms is breathing better. Had a better night. Still not sleeping but feels stronger. Remains afebrile. OBJECTIVE: Temperature 97.5 degrees, pulse 95, respirations 20, blood pressure 145/79. Pupils are equal and round. Lungs are clear in all lung leong. Cardiovascular Examination: Regular rhythm and rate without murmur or S3. Urine output is 3400 mL. Blood sugars 399, 178, and 231. ASSESSMENT AND PLAN: 1. Acute on chronic hypoxemic respiratory failure. Continue oxygen supplementation. She is doing better. 2. Chronic obstructive pulmonary disease exacerbation. 3. Obstructive sleep apnea with noncompliance. 4. Atypical pneumonia. 5. Morbid obesity. 6. Insomnia. 7. She is making progress. Hope to send her home tomorrow. I am going to let her try some trazodone for sleep, 50 mg tonight. cc: Aayush Martinez MD
[2019-09-15] MEDS: MIRALAX PO SCH ×2 (08:34→21:10)
[2019-09-15] MEDS: PROVERA PO SCH (08:34)
[2019-09-15] MEDS: NORVASC PO SCH (08:35)
[2019-09-15] MEDS: PRILOSEC PO SCH ×2 (08:35→21:10)
[2019-09-15] MEDS: NICODERM PATCH TD SCH (08:35)
[2019-09-15] MEDS: COZAAR PO SCH (08:35)
[2019-09-15] MEDS: ZITHROMAX PO SCH (08:35)
[2019-09-15] MEDS: LASIX IV SCH ×2 (08:36→21:11)
[2019-09-15] MEDS: LACTULOSE PO SCH ×2 (08:36→21:11)
[2019-09-15] MEDS: BENADRYL PO SCH ×3 (08:36→21:10)
--- NOTE | 2019-09-15 14:32 | PULMONOLOGY PROGRESS NOTE ---
DATE: 09/15/2019 SUBJECTIVE: Ms. Simms states that she had a better night last night. She feels like she might have slept some. She states that her breathing is improving. OBJECTIVE: Vital signs: Blood pressure is 141/87, with a heart rate of 91, respirations are 17, temperature is 98 degrees, O2 saturations are 97 to 100% on room air. HEENT: Head is normocephalic, atraumatic. Mucous membranes are moist. Neck: Supple with trachea midline. Cardiovascular: Regular rate and rhythm. S1 and S2 appreciated. No murmur. Pulmonary: Breath sounds are clear. No increased work of breathing noted. Chest rises and falls symmetrically with respiration. She has no increased work of breathing. Neurologic: She is alert and oriented x3. LABS: Blood sugars are ranging 170 to 370. IMPRESSION: This is a 48-year-old female with: 1. Acute on chronic hypoxemic respiratory failure, improving. 2. Chronic obstructive pulmonary disease exacerbation, improving. 3. Obstructive sleep apnea with noncompliance. 4. Atypical pneumonia. Antibiotics per primary team 5. Morbid obesity. RECOMMENDATIONS: 1. Encourage weight loss. 2. Encourage smoking cessation. 3. Discussed compliance with CPAP. Dictated by RUSSEL Cordova for Jose Garrido MD cc: RUSSEL Cordova MD [facility]
[2019-09-15] MEDS: ROCEPHIN 1 GM in NS 50 ML IV SCH (16:31)
[2019-09-15] MEDS ORDERED: DESYREL PO SCH (21:00)
[2019-09-15] MEDS: TESSALON PO PRN (21:10)
[2019-09-15] MEDS: MELATONIN PO SCH (21:10)
[2019-09-16] MEDS: NORCO-7.5 PO PRN ×3 (03:58→21:43)
[2019-09-16] MEDS: DUONEB (A & A) INH SCH ×4 (04:57→21:00)
[2019-09-16] MEDS: HUMALOG SUBQ SCH ×4 (06:09→21:37)
[2019-09-16] MEDS: SOLU-MEDROL IV SCH ×4 (06:10→22:30)
--- NOTE | 2019-09-16 07:27 | PROGRESS NOTE ---
DATE: 09/16/2019 SUBJECTIVE: The patient overall is doing well. She denies any flank or abdominal pain. She states she continues to have some blood when she urinates. She is uncertain if this is vaginal bleeding versus from her urinary system. Urine previously was clear yellow with catheter in place and denies passage of clots. Denies any fevers or chills. OBJECTIVE: Vital signs: Temperature 97.7 degrees, heart rate 89, blood pressure 152/90, and oxygen saturation 99% on room air. General: No acute distress. Resting comfortably in bed. Alert and oriented x3. Respiratory: Good respiratory effort without audible wheezing or rales. Abdomen: Soft, nontender, and nondistended. : No suprapubic tenderness. No CVA tenderness. LABORATORY: Reviewed with her the pathology from 09/11/2019. 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 ASSESSMENT AND PLAN: Ms. Simms is a 48-year-old with COPD, diabetes, history of prior strokes, and brain aneurysm, who presented in consultation regarding gross hematuria. She was taken to the operating room on 09/11/2019, underwent cystoscopy, bilateral retrograde pyelograms and bladder biopsies. Overall, patient is doing well. She has been voiding without issue. She says she still noticed some blood when she voids. I think this is likely related to vaginal bleeding. She has been seen by TRAFFIC WORKER who has started her on medications regarding this. I reviewed her pathology today from her surgery, and there was no evidence of malignancy. We will plan for outpatient followup. We will plan for followup in 1 month for follow up in the office with urinalysis. cc: Fady Ram MD [facility]
[2019-09-16] MEDS: COZAAR PO SCH (08:46)
[2019-09-16] MEDS: ZITHROMAX PO SCH (08:46)
[2019-09-16] MEDS: LASIX IV SCH ×2 (08:47→21:44)
[2019-09-16] MEDS: NORVASC PO SCH (08:47)
[2019-09-16] MEDS: NICODERM PATCH TD SCH (08:47)
[2019-09-16] MEDS: PRILOSEC PO SCH ×2 (08:47→21:39)
[2019-09-16] MEDS: MIRALAX PO SCH ×2 (08:47→21:38)
[2019-09-16] MEDS: BENADRYL PO SCH ×3 (08:47→21:38)
[2019-09-16] MEDS: PROVERA PO SCH (08:47)
[2019-09-16] MEDS: LACTULOSE PO SCH ×2 (08:47→21:44)
--- NOTE | 2019-09-16 16:33 | PROGRESS NOTE ---
DATE: 09/16/2019 Ms. Simms she does feel better but she had a little more wheezing, she said she does not feel like she is ready go home today so she wants to try go home tomorrow. Her temperature remains afebrile 97.6 degrees, pulse 95, respirations 18, blood pressure 154/99. Pupils are equal and round. Lungs are clear in all lung leong. Cardiovascular regular rate without murmur or S3. Abdomen is soft. Skin is warm and dry. Urine output is 3600 mL. Blood sugar 231, 181, 232, 134. ASSESSMENT/PLAN: 1. A 48-year-old chronic obstructive pulmonary disease, obstructive apnea and seems to be doing better. Bronchospasms seems improving. She has had some pulmonary venous hypertension and she seems to respond to diuresis. She is moving air much better and I think she will be ready go home tomorrow. 2. Status post brain aneurysm repair. 3. Diabetes mellitus. Sugars under fairly good control. 4. History of prior strokes. While she is here she had some bleeding, had a cystoscopy, bilateral retrograde pyelogram and bladder biopsies. The bleeding has stopped, this was while she had a Rivas catheter in was on Lovenox. She also had some vaginal bleeding was evaluated by gynecology and they had put her on some Provera and seems to be doing well with that. She has had counseling on how to pursue weight loss. She has had trouble with sleep so I put her on trazodone I started on 50 mg that seemed to help her some so I will try her on 100 mg. She is on melatonin 10 mg at bedtime, I will put her up to trazodone 100 mg at bedtime, she is on Norvasc 5 mg daily, azithromycin 500 mg daily, Tessalon Perles 200 mg p.o. t.i.d., Lasix 40 mg IV twice a day, guaifenesin DM cough syrup, lactulose 30 mL b.i.d., Cozaar 100 mg daily, hydroxy progesterone 10 mg daily, methylprednisone 40 mg IV q.8 hours, nicotine patch 21 mg daily, Prilosec 20 mg b.i.d., MiraLAX 17 g p.o. b.i.d., ceftriaxone 1 g q.24 hours, think we can stop the ceftriaxone and hopefully get her ready go home tomorrow. I will go up on the trazodone. cc: Aayush Martinez MD
[2019-09-16] MEDS: DESYREL PO SCH (21:16)
[2019-09-16] MEDS: MELATONIN PO SCH (21:38)
[2019-09-17] MEDS: DUONEB (A & A) INH SCH ×4 (04:07→20:28)
[2019-09-17] MEDS: HUMALOG SUBQ SCH ×4 (06:17→21:51)
[2019-09-17] MEDS: SOLU-MEDROL IV SCH (06:18)
[2019-09-17] MEDS: ZITHROMAX PO SCH (08:43)
[2019-09-17] MEDS: LACTULOSE PO SCH ×2 (08:43→21:52)
[2019-09-17] MEDS: MIRALAX PO SCH ×2 (08:44→21:51)
[2019-09-17] MEDS: PRILOSEC PO SCH (08:44)
[2019-09-17] MEDS: COZAAR PO SCH (08:44)
[2019-09-17] MEDS: BENADRYL PO SCH ×3 (08:44→21:51)
[2019-09-17] MEDS: LASIX IV SCH ×2 (08:44→16:24)
[2019-09-17] MEDS: NICODERM PATCH TD SCH (08:44)
[2019-09-17] MEDS: NORVASC PO SCH (08:44)
[2019-09-17] MEDS: PROVERA PO SCH (08:45)
--- NOTE | 2019-09-17 11:20 | PROGRESS NOTE ---
DATE: 09/17/2019 SUBJECTIVE: This patient is still complaining of fluid overload and some shortness of breath, but compared with admission she feels much better. She has been refusing Lasix treatment, and apparently, also she has not been following a diet. The main reason why she has not been taking the Lasix during the night is because she does not want to get up while she is sleeping, so I will go ahead and change the Lasix. I will continue with the morning dose, but then I will change the night dose to the afternoon around 3:00 p.m. or 4:00 p.m. so she can rest during the night. So far it has been documented that we removed around 23.5 liters. She does have 2 to 3+ lower extremity edema. She has no wheezing. I will stop the steroids IV and I will put her on some p.o., also continue physical therapy, and I have requested to the patient to bring the CPAP machine so we can use it during this hospitalization. OBJECTIVE: Vital Signs: Temperature 97.6 degrees, pulse 107, respiratory rate 19, blood pressure 153/90, oxygen saturation 97% on room air. HEENT: Head normocephalic. No trauma. PERRLA. Neck: Supple. I cannot see JVD because of her neck size. Central trachea. Chest: Decreased breath sounds globally, mostly at the bases with some crepitus. Abdomen: Soft, protuberant, nontender, nondistended. No hepatosplenomegaly. Extremities: Two to 3+ lower extremity edema. No clubbing. No cyanosis. General: This is a morbidly obese patient. Neurological: Alert and awake. She is oriented x3. No focal deficits. LABORATORY: Glucose 290. I will ask for a new CBC, CMP, magnesium, and hemoglobin A1c in the morning. I will see how she does today. ASSESSMENT AND PLAN: 1. Acute on chronic hypoxemic respiratory failure. This seems to be much better. Likely it is a combination of chronic obstructive pulmonary disease exacerbation and sleep apnea with medical noncompliance. 2. Fluid overload. This seems to be getting better. We will continue with same management. 3. Chronic obstructive pulmonary disease exacerbation. It is seems to be improved. I will decrease the dose of the steroids, and actually I will stop the intravenous steroids, and I will put her on oral treatment. 4. Pneumonia, probably atypical. This has been treated. 5. Obstructive sleep apnea with noncompliance. I requested to the patient to bring the CPAP machine to take a look on that and use the CPAP machine during this hospitalization. 6. This patient is morbidly obese with a BMI of 66. Diet and exercise have been discussed. 7. Diabetes. Blood sugar probably is elevated due to steroids, which actually I stopped the intravenous treatment. I will put her on some oral treatment. It looks like she is not on insulin at home, and when she was admitted the glucose was around 124. I will get a hemoglobin A1c to see if I need to add insulin or if I need to continue only with the metformin, which is listed on her medications. 8. Pulmonary hypertension with diastolic dysfunction. Continue with diuretics. Cardiology Department already evaluated this patient before and also during this hospitalization. She seems to be doing better. 9. A history of prior strokes and brain aneurysm. Aware. 10. Gross hematuria, status post cystoscopic exam with bilateral retrograde pyelograms and bladder biopsies. This has resolved. No more blood. Continue with same management. 11. Vaginal bleeding, better controlled. Obstetrics/Gynecology already evaluated this patient. 12. Leukocytosis, probably a combination of a recent pneumonia and steroids. I will get new lab work in the morning. 13. Tobacco abuse. This patient has been highly advised against tobacco use. I will continue with daily cessation education. 14. Gastroesophageal reflux disease. Continue with proton pump inhibitor. 15. Insomnia. This patient has been placed on melatonin and also trazodone. 16. Generalized weakness. Continue physical therapy. 17. I have made some changes today to see if this patient is more compliant with her medications. Apparently she has been eating food from outside of the hospital. I do not think she is following a diet at home. I do not think she is taking her medications as prescribed. She is still smoking though as well. I will see how she does today with the new changes, and hopefully, in the next 24 to 48 hours I will discharge this patient. cc: Seven Zhang MD
[2019-09-17] MEDS: NORCO-7.5 PO PRN ×2 (11:51→17:49)
[2019-09-17] MEDS: MYCOSTATIN SUSP PO SCH ×2 (16:24→21:51)
[2019-09-17] MEDS ORDERED: KLOR-CON PO ONE (17:43)
[2019-09-17] MEDS: DESYREL PO SCH (21:51)
[2019-09-17] MEDS: MELATONIN PO SCH (21:51)
--- NOTE | 2019-09-17 22:33 | PULMONOLOGY PROGRESS NOTE ---
DATE: 09/17/2019 SUBJECTIVE: The patient is awake, alert, and conversant. She has not been taking her evening dose of Lasix because it has been keeping her awake at night. Lasix scheduling has been adjusted. OBJECTIVE: Vital Signs: BP 122/89, heart rate 104, respiratory rate 18, oxygen saturation 98%. HEENT: Pupils are equal and reactive. Oropharynx appears clear. Neck: Is supple. Chest: Reveals prolonged expiratory phase. No wheezing is present. Cardiac exam: S1-S2. Abdomen: Is obese and soft. Extremities: Reveal 1 to 2+ peripheral edema. IMPRESSION: A 48-year-old with 1. Chronic obstructive pulmonary disease. The patient was admitted with an exacerbation, but her lung leong are now clear. 2. Obstructive sleep apnea with noncompliance to her CPAP device. 3. Atypical pneumonia, which has been adequately treated. 4. Super morbid obesity with a body mass index of greater than 66. 5. Smoking/nicotine addiction on admission. She has now been smoke-free for 12 days. PLAN: 1. Continue oxygen at discharge. 2. Encourage sleep evaluation with followup treatment of her sleep apnea to prevent right heart failure. 3. Continue to encourage patient to stop smoking and to lose weight. cc: Jose Garrido MD
[2019-09-18] MEDS: DUONEB (A & A) INH SCH (03:58)
[2019-09-18] MEDS: NORCO-7.5 PO PRN (04:10)
[2019-09-18] MEDS: HUMALOG SUBQ SCH ×2 (06:06→11:04)
[2019-09-18] MEDS ORDERED: PRILOSEC PO SCH (07:00)
[2019-09-18 07:40] LABS: BASO# 0.02 X1000 (0.0-0.2); BASO% 0.1 % (0.0-0.8); EOS# 0.13 X1000 (0.0-0.7); EOS% 0.9 % (0.0-10.0); HEMATOCRIT 37.1 % (37.0-47.0); IMM GRAN# 0.27 X1000 (0.0-0.04); IMM GRAN% 1.9 % (0.0-0.5); LYMPH# 3.87 X1000 (1.2-3.4); LYMPH% 27.4 % (20.5-51.1); MCH 22.4 PG (27-31); MCHC 29.6 g/dL (33-37); MCV 75.4 FL (81-99); MONO# 1.15 X1000 (0.11-0.59); MONO% 8.1 % (1.7-9.3); MPV 10.6 FL (7.4-10.4); NEUT# 8.68 X1000 (1.4-6.5); NEUT% 61.6 % (42.2-75.2); PLT 349 X1000 (130-400); RBC 4.92 XMIL (4.2-5.4); RDW 15.6 % (11.5-14.5); WBC 14.12 X1000 (4.8-10.8)
[2019-09-18] MEDS ORDERED: DUONEB (A & A) ONE (07:49)
[2019-09-18 08:12] LABS: HEMOGLOBIN A1C 7.1 % (4.8-6.0)
[2019-09-18 08:16] LABS: AGAP 11; ALB/GLOB RATIO 1.2; ALBUMIN 3.3 g/dL (3.5-5.0); ALKALINE PHOSPHATASE 66 U/L (32-104); BUN 27 mg/dL (8-22); CALCIUM 8.3 mg/dL (8.8-10.2); CHLORIDE 99 mmol/L (98-107); COSMO 288; CREATININE 0.8 mg/dL (0.5-0.9); ESTIMATED GFR > 60; GLUCOSE 224 mg/dL (70-104); GOT 9 U/L (10-30); GPT 23 U/L (10-36); MAGNESIUM 2.3 mg/dL (1.5-2.7); POTASSIUM 4.8 mmol/L (3.5-5.1); SODIUM 138 mmol/L (136-145); TCO2 28 mmol/L (25-35); TOTAL BILIRUBIN 0.17 mg/dL (0.20-1.00)
[2019-09-18 08:23] VITALS: BP 126/67
[2019-09-18] MEDS: NICODERM PATCH TD SCH (08:58)
[2019-09-18] MEDS: MIRALAX PO SCH (08:58)
[2019-09-18] MEDS: MYCOSTATIN SUSP PO SCH (08:59)
[2019-09-18] MEDS: COZAAR PO SCH (08:59)
[2019-09-18] MEDS: NORVASC PO SCH (08:59)
[2019-09-18] MEDS: LASIX IV SCH (08:59)
[2019-09-18] MEDS: PROVERA PO SCH (08:59)
[2019-09-18] MEDS: BENADRYL PO SCH (08:59)
[2019-09-18] MEDS ORDERED: PREDNISONE PO SCH (09:00)
[2019-09-18] MEDS: LACTULOSE PO SCH (09:00)
[2019-09-18] MEDS ORDERED: KLOR-CON PO SCH (09:15)
--- NOTE | 2019-09-19 09:26 | DISCHARGE SUMMARY ---
ADMISSION DATE: 09/05/2019 DISCHARGE DATE: 09/18/2019 DISCHARGE DIAGNOSES: 1. Acute on chronic hypoxemic respiratory failure in a patient with home oxygen. 2. Fluid overload. 3. Chronic obstructive pulmonary disease exacerbation, resolved. 4. Pneumonia, resolved. 5. Obstructive sleep apnea with noncompliance with the CPAP machine. 6. Morbidly obese patient with a body mass index of 66. 7. Diabetes with a hemoglobin A1c stable at 7.1. 8. Pulmonary hypertension with diastolic dysfunction. 9. History of prior strokes and brain aneurysm. 10. Gross hematuria, status post cystoscopic exam with bilateral retrograde pyelograms and bladder biopsies, resolved. 11. Vaginal bleeding, resolved. 12. Leukocytosis, likely a combination of recent pneumonia and steroids. 13. Tobacco abuse. This patient has been advised against tobacco use on a daily basis. 14. Insomnia. 15. Gastroesophageal reflux disease. 16. Generalized weakness. 17. Likely medical noncompliance. PROCEDURES PERFORMED: 1. Chest x-ray dated 09/05/19 impression: Cardiomegaly with pulmonary edema and possible underlying pneumonia. 2. Chest CT scan dated 09/05/2019 impression: Low lung volumes, indeterminate bilateral infiltrates and atelectasis. 3. Chest x-ray dated 09/09/2019 impression: Significant improvement from prior. 4. Abdomen and pelvis CT scan dated 09/13/19 impression: Suggestion of a couple non obstructing intrarenal stones on the right, no ureteral stone, no obstructive uropathy appreciated. Nonspecific 1 cm nodule at the surface of the liver anteriorly. 5. Pelvic transvaginal ultrasound dated 09/11/2019 impression: Limited study. No definite acute abnormality. CONSULTATIONS: 1. Pulmonary Department, Dr. Jose Garrido. 2. Urology Department, Dr. Fady Ram. 3. Cardiology Department, Dr. Parish Naidu. 4. [facility] Department, Dr. Dustin Riggs. HOSPITAL COURSE: A 48-year-old female with multiple comorbidities, admitted on 09/05/2019. She has a history of CHF diastolic, hypertension, diabetes type 2, anxiety, depression, COPD, CVA x2 and brain aneurysm, obstructive sleep apnea, and she is not compliant with the CPAP machine. She presented and, like I said, she was admitted on 09/05/2019 due to shortness of breath, cough with congestion, wheezing, orthopnea, PND, edema, some chills, dysphagia and sinusitis for 3 days prior to admission. The patient is noted to have audible expiratory wheezing. Her proBNP was elevated at 678. Chest x-ray showed pulmonary edema with possible underlying pneumonia. The patient denied excessive thirst or urination, neck pain, stiffness, chest pain, nausea, vomiting, hematemesis, melena, constipation, dysuria, hematuria, syncope, dizziness, vertigo, headache, or any other pertinent symptoms at that time. So, she was admitted due to congestive heart failure exacerbation. I do not think this patient is following a diet at home or eating food that is not salty, also pneumonia and she was placed on antibiotics. She was placed on Lasix twice a day. For the COPD exacerbation, we started this patient on IV steroids, supplemental oxygen. We will continue with most of her home medications for her diabetes, hypertension, anxiety and depression. Cardiology Department was consulted; they readjusted her medications. As per the patient, she used to take 20 mg of Lasix daily as needed, but here she was taking IV treatment twice a day and actually we do have a good urine output; at the end was around 26.5 L negative balance, which is significant. She has obstructive sleep apnea and she is not compliant with the CPAP machine. I had a large conversation with her about it because this can cause more problems in the future. She brought the CPAP machine here last night, so we went through the details with the patient and the machine. The patient started having gross hematuria. She was placed on Lovenox, which was stopped, and she was evaluated by Urology Department. They did a cystoscopic exam with bilateral retrograde pyelograms, bladder biopsies and fulguration of bleeding. It looks like she has a bladder mass based on the postoperative diagnosis. Also she started having some vaginal bleeding. A transvaginal ultrasound was ordered, but I think did not show any kind of problem. She was placed on treatment by [facility], and she will follow up with them upon discharge. Her vaginal bleeding resolved. The patient's CHF and chronic obstructive pulmonary disease and pneumonia were improving on a daily basis. Like I mentioned before, we have a negative balance of 26.5 L which is significant, and even though we removed that amount of fluid, she still seems to be having some fluid left. I had a large conversation with this patient about diet and exercise, especially salty food and eating outside of the house. As per the nurses, she has been eating food that somebody is bringing to her to the hospital, but I did not see anything like that during might visits. Also she has been refusing treatment on and off during this hospitalization, mostly Lasix in the afternoon because she needed to get up to be able to go to the bathroom and she did not want to stop sleeping. I do feel this patient is doing much better. She will be discharged home today. She will need to follow up with Dr. Fady Ram on 10/14/2019 at 8:20 a.m., also with Dr. Dustin Riggs. She will need to call for an appointment. This has been instructed to the patient. She also needs to follow with her primary care doctor in 1 week, Cardiology as needed. PHYSICAL EXAMINATION: Vital signs: Temperature 97.9 degrees, pulse 102, respiratory rate 18, blood pressure 126/67, oxygen saturation 96 on room air. HEENT: Head normocephalic, no trauma. PERRLA. Neck: Supple. No JVD. No masses. Central trachea. She has a big neck size. Chest: Decreased breath sounds mostly at the bases, some scattered crepitus. Abdomen: Soft, protuberant, nontender, nondistended. No hepatosplenomegaly. Extremities: 2+ lower extremity edema. No clubbing. No cyanosis. Neurological examination: The patient is awake, alert. She is oriented x3. No focal deficit, but generalized weakness. LABORATORY: WBC 14.1, hemoglobin 11, hematocrit 37.1, platelets 349. Sodium 138, potassium 4.8, chloride 99, bicarbonate 28. BUN 27, creatinine 0.8, glucose 224, calcium 8.3. AST 9, ALT 23, alkaline phosphatase 66, albumin 3.3. DISCHARGE MEDICATIONS: 1. Albuterol sulfate 2 puff inhaler twice a day as needed for shortness of breath. 2. Amlodipine 5 mg p.o. daily. 3. Tessalon 200 mg p.o. t.i.d. as needed for cough. 4. Dulcolax 10 mg p.o. rectally daily as needed for constipation. 5. Symbicort 160/4.5 mcg inhaler two inhalations twice a day. 6. Lasix 40 mg p.o. daily. 7. Lactulose 30 mL p.o. b.i.d. as needed for constipation. 8. Losartan 50 mg p.o. daily. 9. Provera 10 mg p.o. daily. 10. Melatonin 5 mg p.o. at bedtime. 11. Metformin 500 mg p.o. b.i.d. 12. Medrol Dosepak as directed. 13. MiraLAX 17 g p.o. b.i.d. 14. Potassium chloride 10 mEq p.o. daily. 15. Trazodone 100 mg p.o. at bedtime. DISCHARGE DISPOSITION: Again, this patient seems to be in stable medical condition, tolerating p.o., and she is ambulating by herself. We are going to provide a front wheel walker as well. She has been instructed to call the [facility] doctor and also follow up with her primary care doctor in 1 week; she already has an appointment with Dr. Ram for 10/14/2019 at 8:20 a.m. TIME DISCHARGING THIS PATIENT: 40 minutes. cc: Seven Zhang MD
== END 2019-09-18 12:07 | disposition home or self-care (01) | DRG 987 ==
LOC: SUPCPDRO → ED 13:21 → 3N 23:47 → SUATTDRO 23:47 → 3N 09-11 18:45
PROVIDERS: ATTEND Internal Medicine